=== PATIENT | male | born 1945 | race Caucasian/White ===

== ENCOUNTER 2017-11-14 13:15 | Inpatient (IN) | payer OTHER ==
[~2017-11-14] VITALS: Ht 172.7 cm; Wt 74.8 kg
--- NOTE | 2017-11-14 13:28 | ED DYSPNEA/ASTHMA COMPLAINT ---
History of Present Illness General Chief Complaint: Dyspnea (COPD, CHF, Other) Stated Complaint: BIBA FOR SOB Source: patient, family Exam Limitations: no limitations Vital Signs & Intake/Output Vital Signs & Intake/Output Vital Signs Date Time Temp Pulse Resp B/P B/P Pulse O2 O2 Flow FiO2 Mean Ox Delivery Rate 11/14 1916 98.4 89 22 118/70 94 Nasal 3.0L Cannula 11/14 1659 97.7 80 22 107/67 92 Nasal 2.0L Cannula 11/14 1519 83 24 88/52 92 Nasal 2.0L Cannula 11/14 1421 95 Nasal 2.0L Cannula 11/14 1417 92 Nasal 2.0L Cannula 11/14 1342 94 Nasal 2.0L Cannula 11/14 1318 97.5 87 26 93/62 87 Room Air Allergies Coded Allergies: NO KNOWN ALLERGIES (11/14/17) Reconcile Medications Albuterol Sulfate (Proair Hfa) 90 MCG HFA.AER.AD 1 PUF INH Q4 PRN SHORTNESS OF BREATH (Reported) Amlodipine Besylate (Norvasc) 5 MG TABLET 1 TAB PO DAILY HEART (Reported) Aspirin (Aspirin*) 81 MG TAB.CHEW 1 TAB PO DAILY HEART HEALTH (Reported) Atorvastatin Calcium (Lipitor) 80 MG TABLET 1 TAB PO DAILY CHOLESTEROL ( Reported) Azithromycin (Zithromax) 250 MG TABLET 1 TAB PO DAILY ANTIBIOTIC, INFECTION ( Reported) Ipratropium/Albuterol Sulfate (Iprat-Albut 0.5-3(2.5) MG/3 Ml) 0.5 MG-3 MG (2.5 MG BASE)/3 ML AMPUL.NEB 1 VIAL PO 4 TIMES/DAY BREATHING PROBLEMS (Reported) Losartan Potassium 100 MG TABLET 1 TAB PO DAILY HEART (Reported) Metoprolol Tartrate (Lopressor) 50 MG TABLET 1 TAB PO DAILY HEART (Reported) Prasugrel HCl (Effient) 10 MG TABLET 1 TAB PO DAILY BLOOD THINNER (Reported) Sitagliptin Phos/Metformin HCl (Janumet 50-1,000 MG Tablet) 50 MG-1,000 MG TABLET 1 TAB PO DAILY DIABETES (Reported) Triage Note: BIBA FROM DR BELLO OFFICE, WITH C/O LOW O2 SATS AT DRS OFFICE OR 88% ON ROOM AIR, GIVEN DUONEB AT DR BELLO OFFICE. Triage Nurses Notes Reviewed? yes HPI: 72 yo M PMH HTN, HLD, CAD/LA, CKD, COPD presenting with shortness of breath. Shortness of breath for the last 2-3 days, constant, progressive, worse with exertion, acute onset. Associated cough, diffuse weakness, fatigue, patient having difficulty ambulating at home. Denies associated fevers, chills, chest pain, palpitations, abdominal Sx, LE swelling or bernal. Patients finally convinced him to be evaluated by his PMD Dr. Bello this morning, was found to be hypoxic and "didn't look well", sent to ED. (Ata Miguel MD) Past History Travel History Traveled to [place] past 21 day No Medical History Any Pertinent Medical History? see below for history Neurological: NONE EENT: NONE Cardiovascular: CAD, hypertension, hyperlipidemia Respiratory: bronchitis Gastrointestinal: NONE Hepatic: NONE Renal: chronic kidney disease, STAGE II Musculoskeletal: NONE Psychiatric: NONE Endocrine: diabetes Surgical History Surgical History: none Psychosocial History What is your primary language Belgian Tobacco Use: Quit >30 days ago ETOH Use: denies use Illicit Drug Use: denies illicit drug use Family History Hx Contributory? Yes (Ata Miguel MD) Review of Systems Review of Systems Constitutional: Reports: see HPI. EENTM: Reports: no symptoms. Respiratory: Reports: see HPI. Cardiovascular: Reports: see HPI. GI: Reports: no symptoms. Genitourinary: Reports: no symptoms. Musculoskeletal: Reports: no symptoms. Skin: Reports: no symptoms. Neurological/Psychological: Reports: no symptoms. Hematologic/Endocrine: Reports: no symptoms. Immunologic/Allergic: Reports: no symptoms. All Other Systems: Reviewed and Negative (Ata Miguel MD) Physical Exam Physical Exam General Appearance: well developed/nourished, no apparent distress, Appears Fatigued Head: atraumatic Eyes: Bilateral: PERRL, EOMI. Ears, Nose, Throat: moist mucus membranes Neck: normal inspection, full range of motion, no midline tenderness Respiratory: no respiratory distress, rhonchi, Diffuse bilateral rhonchi with normal work of breathing Cardiovascular: regular rate/rhythm, normal peripheral pulses Gastrointestinal: soft, non-tender Extremities: no edema Core Measures ACS in differential dx? No CVA/TIA Diagnosis No Sepsis Present: No Sepsis Focused Exam Completed? No (Ata Miguel MD) Progress Differential Diagnosis: asthma, AMI, altitude sickness, bronchitis, costochondritis, CHF, COPD, musculoskeletal pain, pericarditis, pulmonary embolism, pneumonia, pneumothorax, rib fracture, unstable angina Plan of Care: Orders Procedure Date/time Status Misc Message 11/14 1929 Active ED Holding Orders 11/14 1929 Active Patient Data 11/14 1752 Active BLOOD CULTURE 11/14 1636 Active Admit to inpatient 11/14 1629 Active BLOOD CULTURE 11/14 1540 Active Intake & Output 11/14 1431 Active TROPONIN LEVEL 11/14 1345 Complete D-DIMER 11/14 1345 Complete CBC WITHOUT DIFFERENTIAL 11/14 134 Complete B-TYPE NATRIURETIC PEP (BNP) 11/14 1345 Complete BASIC METABOLIC PANEL 11/14 1345 Complete EKG 11/14 1316 Active Laboratory Tests 11/14/17 1418: Anion Gap 14, Estimated GFR 27 L, BUN/Creatinine Ratio 19.2, Glucose 153 H, Calcium 8.4, Troponin I 0.07, Utl-A-Xfajcxghhqc Pept 8210 H, D-Dimer High Sensitivty 700 H, CBC w Diff MAN DIFF ORDERED, RBC 4.74, MCV 85.3, MCH 28.6, MCHC 33.5, RDW 14.0, MPV 10.0, Gran % 92.8 H, Lymphocytes % 4.6 L, Monocytes % 2.5, Eosinophils % 0.1, Basophils % 0, Absolute Granulocytes 15.6 H, Segmented Neutrophils 69, Band Neutrophils 18 H, Absolute Lymphocytes 0.8 L, Lymphocytes 10 L, Monocytes 3, Absolute Monocytes 0.4, Absolute Eosinophils 0, Absolute Basophils 0, Platelet Estimate ADEQUATE, Poikilocytosis 1+, Anisocytosis 1+, [place] Cells Microbiology 11/14 1649 BLOOD: Blood Culture - RECD 11/14 1640 BLOOD: Blood Culture - RECD 11/14 1540 BLOOD: Blood Culture - CAN Cancelled: QNS Physician MDM: 72 yo M PMH HTN, HLD, CAD/LA, CKD, COPD presenting with shortness of breath. SBP 80s, hypoxic to 87% on RA, HR stable, well appearing and mentating well, pulmonary exam with diffuse bilateral rhonchi. DDx: Viral URI, Bronchitis, PNA, COPD exacerbation. Given 2L NS, duonebs x 2, prednisone, O2 NC with improvement in O2 Sat and BP. Labs remarkable for leukocytosis with bandemia, EVELYN (Cr 1.0 >> 2.4), elevated BNP and D-dimer. CXR with RML PNA, vancomycin and ceftaz given. Unable to obtaine CTA 2/2 EVELYN, V/Q scan obtained, low probablity for PE, will not anticoagulate. Admit for EVELYN and PNA with hypoxia on room air. Initial ED EKG: normal axis (Ata Miguel MD) Departure Departure Disposition: STILL A PATIENT Condition: Stable Clinical Impression Primary Impression: EVELYN (acute kidney injury) Secondary Impressions: PNA (pneumonia) Referrals: Abilio Bello MD (PCP/Family) Departure Forms: Customer Survey General Discharge Information Admission Note Spoke With: Teodora Luo MD Documentation of Exam: Documentation of any treatments & extenuating circumstances including Concerns Regarding Discharge (functional status, medication knowledge or non-compliance, living conditions, etc.) that warrant an admission rather than observation: [ Patient presents with hypoxia and hypotension, found to have right middle lobe pneumonia, patient requires admission for oxygen, monitoring, ongoing IV fluids, ongoing IV antibiotics, further evaluation, if the patient was discharged has a high likelihood of progressive hypoxia and progressive pulmonary infection leading to respiratory collapse and ] (Ata Miguel MD) Departure Comments I agree with the physician's documentation above. (Efrain LAYTON,Dudley Cartagena) Critical Care Note Critical Care Note Critical Care Time: non-applicable (Ata Miguel MD)
[2017-11-14] MEDS ORDERED: PROAIR HFA8.5 GM INH (14:16)
[2017-11-14] MEDS ORDERED: IPRAT-ALBUT 0.5-3 ML PO (14:16)
[2017-11-14] MEDS ORDERED: ZITHROMAX250 M2 PO (14:17)
[2017-11-14] MEDS ORDERED: LOSARTAN POTAS100 M1 PO (14:17)
[2017-11-14] MEDS ORDERED: JANUMET 50-1,01 EACH PO (14:18)
[2017-11-14] MEDS ORDERED: LIPITOR80 M1 PO (14:18)
[2017-11-14] MEDS ORDERED: NORVASC5 M1 PO (14:19)
[2017-11-14] MEDS ORDERED: ASPIRIN81 M4 PO (14:19)
[2017-11-14] MEDS ORDERED: LOPRESSOR50 M1 PO (14:19)
[2017-11-14] MEDS ORDERED: EFFIENT10 M1 PO (14:20)
[2017-11-14 14:27] LABS: ABSOLUTE BASOPHIL COUNT 0 /CUMM (0.0-0.2); ABSOLUTE EOSINOPHIL COUNT 0 /CUMM (0.0-0.7); ABSOLUTE GRANULOCYTE CT 15.6 /CUMM (1.4-6.5); ABSOLUTE LYMPH COUNT 0.8 /CUMM (1.2-3.4); ABSOLUTE MONOCYTE COUNT 0.4 /CUMM (0.10-0.60); BASOPHIL % 0 % (0.0-2.0); EOSINOPHIL % 0.1 % (0-5); HEMATOCRIT 40.4 % (42-52); MEAN CORPUSCULAR HGB 28.6 PG (27.0-31.0); MEAN CORPUSCULAR HGB CONC 33.5 G/DL (33.0-37.0); MEAN CORPUSCULAR VOLUME 85.3 FL (80.0-94.0); PLATELET COUNT 159 /CUMM (130-400); RED BLOOD CELL CT 4.74 /CUMM (4.70-6.10); WHITE BLOOD CELL COUNT 16.8 /CUMM (4.8-10.8)
[2017-11-14 14:30] LABS: GRANULOCYTE % 92.8 % (42.2-75.2)
--- NOTE | 2017-11-14 14:54 | RADIOLOGY REPORT ---
EXAMINATION: XR CHEST CLINICAL INFORMATION: Hypoxia and cough. COMPARISON: None TECHNIQUE: Frontal and lateral views of the chest were obtained. FINDINGS: The heart, great vessels, pulmonary vasculature and mediastinum are normal. There is a patchy infiltrate within the right middle lobe. The left lung field appears clear. There is no pleural effusion or pneumothorax. No acute osseous abnormality is seen. IMPRESSION: A patchy infiltrate is seen in the right middle lobe, consistent with acute pneumonia. Recommend radiographic follow-up to clearance.
--- NOTE | 2017-11-14 17:33 | NUCLEAR MEDICINE REPORT ---
EXAMINATION: PULMONARY VENTILATION PERFUSION STUDY CLINICAL INFORMATION: Shortness of breath, hypoxia. COMPARISON: No previous lung scan is available for comparison. Radiographs of the chest dated 11/14/2017, the same date as this lung scan, are available for comparison. TECHNIQUE: Serial gamma scintillation camera images were obtained over the posterior chest during the single breath, equilibrium rebreathing and washout of 9.3 mCi Xe 133 gas. The patient then received 3.4 mCi Tc-99m MAA intravenously and a 6-view perfusion study was performed. FINDINGS: Ventilation images: On the single breath image there is moderately decreased activity in the right lower lobe and minimally decreased activity in the right upper lobe. Initial images become much more homogeneous during the equilibrium phase. During the washout phase there is moderate retention in the lower lobes bilaterally. Perfusion images: No segmental perfusion defects are present. There is moderate heterogeneity in the lungs with a moderate diffuse decrease in activity in the right lower lobe in a pattern that is well matched to the region of gas trapping noted on the washout phase of the ventilation images. This is also well matched to the decreased activity present on the initial breath image of the ventilation study. The contemporaneous chest radiographs show a patchy right lower lung infiltrate. IMPRESSION: Low probability of pulmonary embolism. Matched moderately severe nonsegmental ventilation and perfusion abnormalities are likely due to obstructive airway disease or a pneumonitis.
--- NOTE | 2017-11-14 18:48 | History & Physical ---
Aaliyah GARDINER,[facility] 11/14/17 1848: General Information and HPI MD Statement: I have seen and personally examined RUDDY GUERRA and documented this H&P. The patient is a 72 year old M who presented with a patient stated chief complaint of [shortness of breath]. Source of Information: patient, family, old records Exam Limitations: no limitations History of Present Illness: Patient is 72-year-old male with past medical history significant for hypertension, hyperlipidemia, diabetes mellitus, coronary artery disease status post stent placement 2 5 years ago on dual antiplatelet therapy, asthma, chronic kidney disease stage II, diffuse osteoarthritis who presented to ED with chief complaint of shortness of breath and progressive weakness over the last 2 day. History was obtained from the patient and his were reported history of shortness of breath over the last 2 days associated with progressive weakness , wheeze, chills, productive cough of white sputum and paroxysmal nocturnal dyspnea. Patient denied fever, chest pain, palpitation, nasal congestion, ear pain, headache, dizziness, orthopnea, leg swelling. No history of sick contact. Patient has been using inhalers more frequent recently, had to visit to [facility] ED over the last couple of month however no admissions. Patient tried Mucinex that helped his cough. Allergies/Medications Allergies: Coded Allergies: NO KNOWN ALLERGIES (11/14/17) Past History Travel History Traveled to [place] past 21 day No Medical History Neurological: NONE EENT: NONE Cardiovascular: CAD, hypertension, hyperlipidemia Respiratory: bronchitis Gastrointestinal: NONE Hepatic: NONE Renal: chronic kidney disease, STAGE II Musculoskeletal: NONE Psychiatric: NONE Endocrine: diabetes Surgical History Surgical History: non-contributory Past Family/Social History Psychosocial History ETOH Use: denies use Illicit Drug Use: denies illicit drug use Review of Systems Review of Systems Constitutional: Reports: see HPI, chills. Denies: fever. EENTM: Denies: blurred vision, visual changes. Cardiovascular: Denies: chest pain, orthopena, palpitations. Respiratory: Reports: cough, short of breath, wheezing. Denies: hemoptysis, orthopnea. GI: Reports: bloating. Denies: abdominal pain. Genitourinary: Denies: dysuria, frequency, hematuria. Skin: Denies: moles, rash. Neurological/Psychological: Denies: anxiety, confusion. Exam & Diagnostic Data Last 24 Hrs of Vital Signs/I&O Vital Signs Date Time Temp Pulse Resp B/P B/P Pulse O2 O2 Flow FiO2 Mean Ox Delivery Rate 11/148 97.6 86 20 136/70 95 Nasal 3.0L Cannula 11/14 2100 Nasal 2.0L Cannula 11/14 1916 98.4 89 22 118/70 94 Nasal 3.0L Cannula 11/14 1659 97.7 80 22 107/67 92 Nasal 2.0L Cannula 11/14 1519 83 24 88/52 92 Nasal 2.0L Cannula 11/14 1421 95 Nasal 2.0L Cannula 11/14 1417 92 Nasal 2.0L Cannula 11/14 1342 94 Nasal 2.0L Cannula 11/14 1318 97.5 87 26 93/62 87 Room Air Intake & Output 11/14 1600 11/14 0800 11/14 0000 Intake Total 100 Output Total Balance 100 Intake, Oral 100 Patient 74.843 kg Weight Weight Reported by Patient Measurement Method Physical Exam General Appearance Alert, Oriented X3, Cooperative, No Acute Distress Skin No Rashes, No Breakdown, No Significant Lesion Skin Temp/Moisture Exam: Warm/Dry HEENT Atraumatic, PERRLA, EOMI, Mucous Membr. moist/pink Neck Supple Cardiovascular Regular Rate, Normal S1, Normal S2, No Murmurs Lungs diffuse bilateral wheeze Decrease at entry bilateral Abdomen Normal Bowel Sounds, Soft, No Tenderness Neurological Normal Gait, Normal Speech, Strength at 5/5 X4 Ext, Normal Tone, Sensation Intact, Cranial Nerves 3-12 NL, Reflexes 2+ Extremities No Clubbing, No Cyanosis, No Edema, Normal Pulses Last 24 Hrs of Labs/Herrera: Laboratory Tests 11/14/17 1418: Anion Gap 14, Estimated GFR 27 L, BUN/Creatinine Ratio 19.2, Glucose 153 H, Calcium 8.4, Troponin I 0.07, Uid-R-Rrynsthfprx Pept 8210 H, D-Dimer High Sensitivty 700 H, CBC w Diff MAN DIFF ORDERED, RBC 4.74, MCV 85.3, MCH 28.6, MCHC 33.5, RDW 14.0, MPV 10.0, Gran % 92.8 H, Lymphocytes % 4.6 L, Monocytes % 2.5, Eosinophils % 0.1, Basophils % 0, Absolute Granulocytes 15.6 H, Segmented Neutrophils 69, Band Neutrophils 18 H, Absolute Lymphocytes 0.8 L, Lymphocytes 10 L, Monocytes 3, Absolute Monocytes 0.4, Absolute Eosinophils 0, Absolute Basophils 0, Platelet Estimate ADEQUATE, Poikilocytosis 1+, Anisocytosis 1+, [place] Cells Microbiology 11/14 2222 URINE ROUT: Legionella Antigen - ORD 11/14 2222 URINE ROUT: Streptococcus pneumoniae Antigen (M - ORD 11/14 2221 LOWER RESP: Respiratory Culture - ORD 11/14 2221 LOWER RESP: Gram Stain - ORD 11/14 1649 BLOOD: Blood Culture - RECD 11/14 1640 BLOOD: Blood Culture - RECD 11/14 1540 BLOOD: Blood Culture - CAN Cancelled: QNS Assessment/Plan Assessment: Patient is 72-year-old male with past medical history significant for hypertension, hyperlipidemia, diabetes mellitus, coronary artery disease status post stent placement 2 5 years ago on dual antiplatelet therapy, asthma, chronic kidney disease stage II, diffuse osteoarthritis who presented to ED with chief complaint of shortness of breath and progressive weakness over the last 2 day. Problem list Acute hypoxic respiratory failure due to Community-acquired pneumonia Asthma Hypertension and hyperlipidemia Coronary artery disease status post stent placement Diabetes mellitus Chronic kidney disease Osteoarthritis Plan Admit to general medical floor Vitals every shift Repeat troponin and EKG Ceftriaxone and azithromycin Solu-Medrol 40 twice a day TRC and nebs Continue home medication Accu check and NovoLog sliding scale Diabetic diet with sodium restriction Please obtain records from PCP for baseline kidney function DVT prophylaxis Alps and heparin subcutaneous Code full As Ranked By This Provider Problem List: 1. PNA (pneumonia) 2. Acute respiratory failure with hypoxia Core Measures/Misc (03/26) Acute Coronary Syndrome ACS Diagnosis: No Congestive Heart Failure Congestive Heart Failure Diagnosis No Cerebrovascular Accident CVA/TIA Diagnosis: No VTE (View Protocol) VTE Risk Factors Age>40 No Mechanical VTE Prophylaxis d/t N/A MechProphylax Ordered No VTE Pharm Prophylaxis d/t NA PharmProphylax ordered Sepsis (View protocol) Sepsis Present: No Teodora Luo MD 11/14/172140: General Information and HPI Allergies/Medications Home Med list Albuterol Sulfate (Proair Hfa) 90 MCG HFA.AER.AD 1 PUF INH Q4 PRN SHORTNESS OF BREATH (Reported) Aspirin (Aspirin*) 81 MG TAB.CHEW 1 TAB PO DAILY HEART HEALTH (Reported) Atorvastatin Calcium (Lipitor) 80 MG TABLET 1 TAB PO DAILY CHOLESTEROL ( Reported) Azithromycin (Zithromax) 250 MG TABLET 1 TAB PO DAILY ANTIBIOTIC, INFECTION ( Reported) Ipratropium/Albuterol Sulfate (Iprat-Albut 0.5-3(2.5) MG/3 Ml) 0.5 MG-3 MG (2.5 MG BASE)/3 ML AMPUL.NEB 1 VIAL PO 4 TIMES/DAY BREATHING PROBLEMS (Reported) Losartan Potassium 100 MG TABLET 1 TAB PO DAILY HEART (Reported) Metoprolol Tartrate (Lopressor) 50 MG TABLET 1 TAB PO DAILY HEART (Reported) Prasugrel HCl (Effient) 10 MG TABLET 1 TAB PO DAILY BLOOD THINNER (Reported) Sitagliptin Phos/Metformin HCl (Janumet 50-1,000 MG Tablet) 50 MG-1,000 MG TABLET 1 TAB PO DAILY DIABETES (Reported) Attending MD Review Statement Attending Statement Attending MD Statement: examined this patient, discuss w/resident/PA/HOUSEKEEPING ASSISTANT, agreed w/resident/PA/HOUSEKEEPING ASSISTANT, reviewed EMR data (avail) Attending Assessment/Plan: 72M PMH COPD, T2DM, CAD with 3 days of fever, productive cough, malaise found to have RML pneumonia on CXR, desaturated in Dr. Gaviria office and placed on 2L NC (not on oxygen at home), borderline hypotensive, afebrile. Given Vancomycin and Ceftazidime in ER, will continue with Ceftriaxone and Azithro, Solumedrol, cultures, nebulizer treatment.
[2017-11-14 22:28] VITALS: BP 136/70
--- NOTE | 2017-11-15 05:00 | PN- Housestaff ---
Subjective Follow-up For: Community-acquired pneumonia Complaints: no complaints Subjective: Patient seen and examined at bedside no overnight events. No complaints. Denies shortness of breath, nausea, vomiting, abdominal pain. Review of Systems Constitutional: Reports: no symptoms, see HPI. Objective Last 24 Hrs of Vital Signs/I&O Vital Signs Date Time Temp Pulse Resp B/P B/P Pulse O2 O2 Flow FiO2 Mean Ox Delivery Rate 11/15 1150 101 118/64 11/15 0856 91 100/58 11/15 0955 91 100/58 11/15 0800 93 Nasal 3.0L Cannula 11/15 0556 98.0 91 20 100/58 93 Room Air 11/15 0000 Nasal 3.0L Cannula 11/14 2228 97.6 86 20 136/70 95 Nasal 3.0L Cannula 11/14 2100 Nasal 2.0L Cannula 11/14 1916 98.4 89 22 118/70 94 Nasal 3.0L Cannula 11/14 1659 97.7 80 22 107/67 92 Nasal 2.0L Cannula 11/14 1519 83 24 88/52 92 Nasal 2.0L Cannula 11/14 1421 95 Nasal 2.0L Cannula 11/14 1417 92 Nasal 2.0L Cannula Intake & Output 11/15 1600 11/15 0800 11/15 0000 Intake Total 200 400 Output Total Balance 200 400 Intake, Oral 200 400 Patient 165 lb Weight Weight Reported by Patient Measurement Method Physical Exam General Appearance: Alert, Oriented X3, Cooperative, No Acute Distress Cardiovascular: Regular Rate, Normal S1, Normal S2, No Murmurs Lungs: whezzing all lung feilds Abdomen: Normal Bowel Sounds, Soft, No Tenderness, No Hepatospenomegaly Neurological: Normal Speech, Strength at 5/5 X4 Ext, Normal Tone, Sensation Intact, Cranial Nerves 3-12 NL Extremities: No Cyanosis, No Edema, Normal Pulses Current Medications: Current Medications Sig/Evaristo Start time Last Medication Dose Route Stop Time Status Admin Albuterol Sulfate 3 ML EVERY 4 HRS/AWAKE 11/15 1600 UNVr INH Albuterol Sulfate 1 PUF Q4 PRN 11/14 2230 AC 11/15 INH 0617 Albuterol Sulfate 3 ML ONCE ONE 11/14 1345 DC 11/14 INH 11/14 1346 1417 Albuterol Sulfate 3 ML ONCE ONE 11/14 1345 DC 11/14 INH 11/14 1346 1421 Aspirin 81 MG DAILY 11/15 899 AC 11/15 PO 0842 Atorvastatin Calcium 80 MG DAILY 11/15 899 AC 11/15 PO 0843 Azithromycin 500 MG DAILY 11/15 899 AC 11/15 Sodium Chloride 250 ML IV 0843 Ceftazidime 0 .STK-MED ONE 11/14 1532 DC .ROUTE Ceftazidime 1,000 MG ONCE ONE 11/14 1515 DC 11/14 IV 11/14 1516 1653 Ceftriaxone Sodium 1,000 MG DAILY 11/15 899 AC 11/15 IV 1118 Dextrose/Sodium 1,000 ML Q10H 11/15 1115 AC 11/15 Chloride IV 1203 Guaifenesin 600 MG Q12 11/14 2222 AC 11/15 PO 0842 Heparin Sodium 5,000 UNIT Q8 11/15 599 AC 11/15 (Porcine) SC 0516 Insulin Aspart 0 TIDAC 11/16 799 AC 11/15 SC 1214 Ipratropium Protection 2.5 ML EVERY 4 HRS/AWAKE 11/15 1600 UNVr INH Ipratropium Protection 2.5 ML ONCE ONE 11/14 2230 DC INH 11/14 2231 Ipratropium Protection 2.5 ML ONCE ONE 11/14 1345 DC 11/14 INH 11/14 1346 1417 Ipratropium Protection 2.5 ML ONCE ONE 11/14 1345 DC 11/14 INH 11/14 1346 1421 Losartan Potassium 100 MG DAILY 11/15 899 DC PO Methylprednisolone 40 MG Q8 11/15 1400 AC IV Methylprednisolone 40 MG Q12 11/15 899 DC 11/15 IV 0842 Methylprednisolone 40 MG Q12 11/14 2222 DC IV Metoprolol Tartrate 50 MG DAILY 11/15 899 AC 11/15 PO 1344 Patient Medication 1 ED ONE ONE 11/15 1215 DC Teaching ED 11/15 1216 Prasugrel 10 MG DAILY 11/15 899 AC 11/15 PO 0842 Prednisone 0 .STK-MED ONE 11/14 1434 DC PO Prednisone 60 MG ONCE ONE 11/14 1345 DC 11/14 PO 11/14 1346 1430 Sodium Chloride 1,000 ML BOLUS ONE 11/14 1545 DC IV 11/14 1744 Sodium Chloride 1,000 ML BOLUS ONE 11/14 1515 DC 08 IV 11/14 1714 1500 Vancomycin HCl 0 .STK-MED ONE 11/14 1532 DC .ROUTE Vancomycin HCl 1,000 MG ONCE ONE 11/14 1515 DC 11/14 Sodium Chloride 250 ML IV 11/14 1614 1701 Last 24 Hrs of Lab/Herrera Results Last 24 Hrs of Labs/Mics: Laboratory Tests 11/15/17 0710: Anion Gap 15, Estimated GFR 23 L, BUN/Creatinine Ratio 24.8 11/15/17 0645: CBC w Diff MAN DIFF ORDERED, RBC 4.53 L, MCV 84.9, MCH 27.9, MCHC 32.8 L, RDW 15.1 H, MPV 10.9 H, Gran % 95.5 H, Lymphocytes % 2.7 L, Monocytes % 1.8, Eosinophils % 0, Basophils % 0, Absolute Granulocytes 19.2 H, Segmented Neutrophils 63, Band Neutrophils 29 H, Absolute Lymphocytes 0.6 L, Lymphocytes 5 L, Monocytes 1 L, Absolute Monocytes 0.4, Absolute Eosinophils 0, Absolute Basophils 0, Metamyelocytes 2 H, Platelet Estimate VERIFIED BY SMEAR, Normocytic RBCs VERIFIED, Normochromic RBCs VERIFIED 11/14/17 2255: Troponin I 0.08 11/14/17 1418: Anion Gap 14, Estimated GFR 27 L, BUN/Creatinine Ratio 19.2, Glucose 153 H, Calcium 8.4, Troponin I 0.07, Lqx-[id number]-Urcxxgrtfja Pept 8210 H, D-Dimer High Sensitivty 700 H, CBC w Diff MAN DIFF ORDERED, RBC 4.74, MCV 85.3, MCH 28.6, MCHC 33.5, RDW 14.0, MPV 10.0, Gran % 92.8 H, Lymphocytes % 4.6 L, Monocytes % 2.5, Eosinophils % 0.1, Basophils % 0, Absolute Granulocytes 15.6 H, Segmented Neutrophils 69, Band Neutrophils 18 H, Absolute Lymphocytes 0.8 L, Lymphocytes 10 L, Monocytes 3, Absolute Monocytes 0.4, Absolute Eosinophils 0, Absolute Basophils 0, Platelet Estimate ADEQUATE, Poikilocytosis 1+, Anisocytosis 1+, [place] Cells Microbiology 11/14 2222 URINE ROUT: Legionella Antigen - CAN Cancelled: SPECIMEN NOT RECEIVED IN LABORATORY 11/14 2222 URINE ROUT: Streptococcus pneumoniae Antigen (M - CAN Cancelled: SPECIMEN NOT RECEIVED IN LABORATORY 11/14 2221 LOWER RESP: Respiratory Culture - CAN Cancelled: SPECIMEN NOT RECEIVED IN LABORATORY 11/14 2222 LOWER RESP: Gram Stain - CAN Cancelled: SPECIMEN NOT RECEIVED IN LABORATORY 11/14 1649 BLOOD: Blood Culture - RES GRAM POSITIVE COCCI 11/14 1640 BLOOD: Blood Culture - RES GRAM POSITIVE COCCI 11/14 1540 BLOOD: Blood Culture - CAN Cancelled: QNS Assessment/Plan Assessment: Patient is 72-year-old male with past medical history significant for hypertension, hyperlipidemia, diabetes mellitus, coronary artery disease status post stent placement 2 - 5 years ago on dual antiplatelet therapy, asthma, chronic kidney disease stage II, diffuse osteoarthritis who presented to ED with chief complaint of shortness of breath and progressive weakness over the last 2 day. Problem list Acute hypoxic respiratory failure due to Community-acquired pneumonia Asthma Hypertension and hyperlipidemia Coronary artery disease status post stent placement Diabetes mellitus Chronic kidney disease-stage I Osteoarthritis Plan * Continue ceftriaxone and azithromycin-patient being treated for community- acquired pneumonia. TRC nebulization. Continue albuterol, Mucinex and IV methylprednisone every 8. Patient is growing gram-positive cocci in chains. We will follow up with final cultures. * Ggxahayo-Ztjm-Qrhp and NovoLog sliding scale insulin. * Coronary artery disease-continue effient, aspirin, metoprolol 50. We will discontinue losartan in view of acute kidney injury. His baseline creatinine is 1.1 [spoke to Dr. Rivera's over the phone] his creatinine yesterday was 2.4 and today is 2.7. This looks most likely dehydration we'll give him IV fluids. We will also check renal ultrasound, see note, urine osmolality, urine sodium, urine creatinine. We will involve cardiology on board and order echocardiogram. * Continue rest of his medications. * Code-full code * Diet-diabetic diet Problem List: 1. Acute respiratory failure with hypoxia 2. PNA (pneumonia) 3. EVELYN (acute kidney injury) Pain Ratin Pain Location: none Pain Goal: Remain pain free Pain Plan: tylenol Tomorrow's Labs & Rationales: bep
--- NOTE | 2017-11-15 05:20 | Event Note ---
Event Note Event Note: Situation Nursing called that b/c is growing GPC X2 Background 72 Y M past medical history significant for hypertension, hyperlipidemia, diabetes mellitus, coronary artery disease status post stent placement 2 5 years ago on dual antiplatelet therapy, asthma, chronic kidney disease stage II, diffuse osteoarthritis who presented to ED with chief complaint of shortness of breath and progressive weakness over the last 2 day. A and P Patient received 1 dose of Ceftaz and vancomycin at 3:30 PM yesterday. Cr was 2.4, pharmacy was contacted, considering the last dose of vancomycin was less than 24 hours, we will hold to administer extra dose at this time. If indicated vanc level needs to be checked to guid treatment. Morning team will be informed.
[2017-11-15 05:56] VITALS: BP 100/58
[2017-11-15 08:48] LABS: ABSOLUTE BASOPHIL COUNT 0 /CUMM (0.0-0.2); ABSOLUTE EOSINOPHIL COUNT 0 /CUMM (0.0-0.7); ABSOLUTE GRANULOCYTE CT 19.2 /CUMM (1.4-6.5); ABSOLUTE LYMPH COUNT 0.6 /CUMM (1.2-3.4); ABSOLUTE MONOCYTE COUNT 0.4 /CUMM (0.10-0.60); BASOPHIL % 0 % (0.0-2.0); EOSINOPHIL % 0 % (0-5); GRANULOCYTE % 95.5 % (42.2-75.2); HEMATOCRIT 38.4 % (42-52); MEAN CORPUSCULAR HGB 27.9 PG (27.0-31.0); MEAN CORPUSCULAR HGB CONC 32.8 G/DL (33.0-37.0); MEAN CORPUSCULAR VOLUME 84.9 FL (80.0-94.0); MEAN PLATELET VOLUME 10.9 FL (7.4-10.4); PLATELET COUNT 156 /CUMM (130-400); RBC DISTRIBUTION WIDTH 15.1 % (11.5-14.5); RED BLOOD CELL CT 4.53 /CUMM (4.70-6.10); WHITE BLOOD CELL COUNT 20.1 /CUMM (4.8-10.8)
[2017-11-15 11:50] VITALS: BP 118/64
--- NOTE | 2017-11-15 12:14 | PN- Att Addend ---
Attending Addendum Attending Brief Note Patient seen and examined, not feeling much better. Still pretty short of breath. Requiring significant amount of oxygen. Blood cultures growing gram- positive cocci in chains. Vital Signs Date Time Temp Pulse Resp B/P B/P Pulse O2 O2 Flow FiO2 Mean Ox Delivery Rate 11/15 1150 101 118/64 11/15 0956 91 100/58 11/15 0955 91 100/58 11/15 0800 93 Nasal 3.0L Cannula 11/15 0556 98.0 91 20 100/58 93 Room Air 11/15 0000 Nasal 3.0L Cannula 11/14 2228 97.6 86 20 136/70 95 Nasal 3.0L Cannula 11/14 2100 Nasal 2.0L Cannula 11/14 1916 98.4 89 22 118/70 94 Nasal 3.0L Cannula 11/14 1659 97.7 80 22 107/67 92 Nasal 2.0L Cannula 11/14 1519 83 24 88/52 92 Nasal 2.0L Cannula 11/14 1421 95 Nasal 2.0L Cannula 11/14 1417 92 Nasal 2.0L Cannula 11/14 1342 94 Nasal 2.0L Cannula 11/14 1318 97.5 87 26 93/62 87 Room Air on exam; aox3, nad. cv; s1,s2, rrr resp; + junky bs and exp wheeze. abd; soft, nt, bs+ ext; no edema Laboratory Tests 11/15 11/15 11/14 0710 0645 2255 Chemistry Sodium (137 - 145 mmol/L) 140 Potassium (3.5 - 5.1 mmol/L) 3.6 Chloride (98 - 107 mmol/L) 105 Carbon Dioxide (22 - 30 mmol/L) 20 L Anion Gap (5 - 16) 15 BUN (9 - 20 mg/dL) 67 H Creatinine (0.7 - 1.2 mg/dL) 2.7 H Estimated GFR (>60 ml/min) 23 L BUN/Creatinine Ratio (7 - 25 %) 24.8 Troponin I (<0.11 ng/ml) 0.08 Hematology CBC w Diff MAN DIFF ORDERED WBC (4.8 - 10.8 /CUMM) 20.1 H RBC (4.70 - 6.10 /CUMM) 4.53 L Hgb (14.0 - 18.0 G/DL) 12.6 L Hct (42 - 52 %) 38.4 L MCV (80.0 - 94.0 FL) 84.9 MCH (27.0 - 31.0 PG) 27.9 MCHC (33.0 - 37.0 G/DL) 32.8 L RDW (11.5 - 14.5 %) 15.1 H Plt Count (130 - 400 /CUMM) 156 MPV (7.4 - 10.4 FL) 10.9 H Gran % (42.2 - 75.2 %) 95.5 H Lymphocytes % (20.5 - 51.1 %) 2.7 L Monocytes % (1.7 - 9.3 %) 1.8 Eosinophils % (0 - 5 %) 0 Basophils % (0.0 - 2.0 %) 0 Absolute Granulocytes (1.4 - 6.5 /CUMM) 19.2 H Segmented Neutrophils (42.2 - 75.2 %) 63 Band Neutrophils (0.0 - 5.0 %) 29 H Absolute Lymphocytes (1.2 - 3.4 /CUMM) 0.6 L Lymphocytes (20.5 - 51.1 %) 5 L Monocytes (1.7 - 9.3 %) 1 L Absolute Monocytes (0.10 - 0.60 /CUMM) 0.4 Absolute Eosinophils (0.0 - 0.7 /CUMM) 0 Absolute Basophils (0.0 - 0.2 /CUMM) 0 Metamyelocytes (0.0 - 1.0 %) 2 H Platelet Estimate (ADEQUATE) VERIFIED BY SMEAR Normocytic RBCs VERIFIED Normochromic RBCs VERIFIED 11/14 1418 Chemistry Sodium (137 - 145 mmol/L) 140 Potassium (3.5 - 5.1 mmol/L) 4.2 Chloride (98 - 107 mmol/L) 104 Carbon Dioxide (22 - 30 mmol/L) 22 Anion Gap (5 - 16) 14 BUN (9 - 20 mg/dL) 46 H Creatinine (0.7 - 1.2 mg/dL) 2.4 H Estimated GFR (>60 ml/min) 27 L BUN/Creatinine Ratio (7 - 25 %) 19.2 Glucose (65 - 99 mg/dL) 153 H Calcium (8.4 - 10.2 mg/dL) 8.4 Troponin I (<0.11 ng/ml) 0.07 Vha-M-Ekwmlvkybnw Pept (<125 pg/mL) 8210 H Coagulation D-Dimer High Sensitivty (0 - 243 ng/ml) 700 H Hematology CBC w Diff MAN DIFF ORDERED WBC (4.8 - 10.8 /CUMM) 16.8 H RBC (4.70 - 6.10 /CUMM) 4.74 Hgb (14.0 - 18.0 G/DL) 13.5 L Hct (42 - 52 %) 40.4 L MCV (80.0 - 94.0 FL) 85.3 MCH (27.0 - 31.0 PG) 28.6 MCHC (33.0 - 37.0 G/DL) 33.5 RDW (11.5 - 14.5 %) 14.0 Plt Count (130 - 400 /CUMM) 159 MPV (7.4 - 10.4 FL) 10.0 Gran % (42.2 - 75.2 %) 92.8 H Lymphocytes % (20.5 - 51.1 %) 4.6 L Monocytes % (1.7 - 9.3 %) 2.5 Eosinophils % (0 - 5 %) 0.1 Basophils % (0.0 - 2.0 %) 0 Absolute Granulocytes (1.4 - 6.5 /CUMM) 15.6 H Segmented Neutrophils (42.2 - 75.2 %) 69 Band Neutrophils (0.0 - 5.0 %) 18 H Absolute Lymphocytes (1.2 - 3.4 /CUMM) 0.8 L Lymphocytes (20.5 - 51.1 %) 10 L Monocytes (1.7 - 9.3 %) 3 Absolute Monocytes (0.10 - 0.60 /CUMM) 0.4 Absolute Eosinophils (0.0 - 0.7 /CUMM) 0 Absolute Basophils (0.0 - 0.2 /CUMM) 0 Platelet Estimate (ADEQUATE) ADEQUATE Poikilocytosis 1+ Anisocytosis 1+ [place] Cells A/P; 72 y/o F with pmh sig for hypertension, hyperlipidemia, diabetes mellitus, coronary artery disease status post stent placement 2, 5 years ago on dual antiplatelet therapy, asthma, chronic kidney disease stage II, diffuse osteoarthritis, admitted with acute respiratory failure secondary to community- acquired pneumonia. Patient also bacteremic with gram-positive cocci in chains. Patient also has acute renal failure on chronic kidney disease. Patient currently on cefazolin azithromycin. We'll follow-up on the blood cultures and adjust in about 6 accordingly. Continue IV steroids. Continue TRC nebs. Patient also has acute renal failure. Was started gentle IV hydration. Please check renal ultrasound as well as bladder ultrasound. Please check urine studies and calculate FENA. We'll monitor creatinine and if no improvement then will consider nephrology consult. Patient also has high proBNP. We'll obtain cardiology consult and obtain an echocardiogram. Continue the rest of the medications. Avoid nephrotoxic's. Hold ARB. Patient on heparin subcutaneous for DVT prophylaxis.
--- NOTE | 2017-11-15 13:05 | ULTRASOUND REPORT ---
EXAMINATION: US RETROPERITONEAL COMPLETE (RENAL) CLINICAL INFORMATION: Increased creatinine level. COMPARISON: None TECHNIQUE: Real-time imaging of the kidneys and bladder. FINDINGS: RIGHT KIDNEY: 11.1 x 5.3 x 5.4 cm (SAG x AP x TRV). The kidney is normal in size, contour, and echogenicity. Renal cortical thickness is normal. No calculi or focal parenchymal lesions. No hydronephrosis. LEFT KIDNEY: 11.5 x 5.7 x 4.0 cm (SAG x AP x TRV). The kidney is normal in size, contour, and echogenicity. Renal cortical thickness is normal. At the interpolar aspect, a 4.9 x 4.0 x 5.6 on anechoic, exophytic cyst is seen. No calculi or focal parenchymal solid lesions. No hydronephrosis. BLADDER: Well-distended and normal. Bilateral ureteral jets are demonstrated. Prevoid bladder volume is 245 mL. IMPRESSION: A simple left renal cyst is incidentally noted. The examination is otherwise unremarkable.
[2017-11-15 13:58] VITALS: BP 120/80
[2017-11-15 22:10] VITALS: BP 138/70
[2017-11-16 06:39] VITALS: BP 136/72
[2017-11-16 07:48] LABS: ABSOLUTE BASOPHIL COUNT 0 /CUMM (0.0-0.2); ABSOLUTE EOSINOPHIL COUNT 0 /CUMM (0.0-0.7); ABSOLUTE GRANULOCYTE CT 18.5 /CUMM (1.4-6.5); ABSOLUTE LYMPH COUNT 0.5 /CUMM (1.2-3.4); ABSOLUTE MONOCYTE COUNT 0.3 /CUMM (0.10-0.60); BASOPHIL % 0 % (0.0-2.0); EOSINOPHIL % 0 % (0-5); GRANULOCYTE % 95.9 % (42.2-75.2); HEMATOCRIT 35.9 % (42-52); MEAN CORPUSCULAR HGB 28.1 PG (27.0-31.0); MEAN CORPUSCULAR HGB CONC 33.5 G/DL (33.0-37.0); MEAN CORPUSCULAR VOLUME 83.8 FL (80.0-94.0); MEAN PLATELET VOLUME 10.2 FL (7.4-10.4); PLATELET COUNT 154 /CUMM (130-400); RBC DISTRIBUTION WIDTH 14.3 % (11.5-14.5); RED BLOOD CELL CT 4.29 /CUMM (4.70-6.10); WHITE BLOOD CELL COUNT 19.3 /CUMM (4.8-10.8)
--- NOTE | 2017-11-16 08:19 | PN- Housestaff ---
Cyndee GARDINER,Surekha 11/16/17 0819: Subjective Follow-up For: Community-acquired pneumonia Subjective: Patient seen and examined at bedside no overnight events. No complaints. Denies shortness of breath, nausea, vomiting, abdominal pain. Review of Systems Constitutional: Reports: no symptoms, see HPI. Objective Last 24 Hrs of Vital Signs/I&O Vital Signs Date Time Temp Pulse Resp B/P B/P Pulse O2 O2 Flow FiO2 Mean Ox Delivery Rate 11/16 1105 93 Nasal 2.0L Cannula 11/16 0852 92 136/72 11/16 0838 89 Nasal 1.0L Cannula 11/16 08 Nasal 2.0L Cannula 11/16 0639 97.5 92 20 136/72 94 11/16 0000 Nasal 3.0L Cannula 11/15 2210 98.1 103 20 138/70 94 Nasal 3.0L Cannula 11/15 1944 Nasal 3.0L Cannula 11/15 1607 93 Nasal 3.0L Cannula 11/15 1600 91 Nasal 3.0L Cannula 11/15 1358 98.5 99 18 120/80 91 Nasal 3.0L Cannula 11/15 1345 Nasal 3.0L Cannula 11/15 1344 101 118/64 11/15 1150 101 118/64 Intake & Output 11/16 1600 11/16 0800 11/16 0000 Intake Total 800 800 Output Total 200 Balance 800 600 Intake, IV 800 800 Output, Urine 200 Physical Exam General Appearance: Alert, Oriented X3, Cooperative, No Acute Distress Cardiovascular: Normal S1, Normal S2, No Murmurs Lungs: b/l wheeze Abdomen: Soft, No Tenderness, No Hepatospenomegaly, No Masses Neurological: Strength at 5/5 X4 Ext, Normal Tone, Sensation Intact, Cranial Nerves 3-12 NL Extremities: No Cyanosis, No Edema, Normal Pulses Current Medications: Current Medications Sig/Evaristo Start time Last Medication Dose Route Stop Time Status Admin Albuterol Sulfate 3 ML EVERY 4 HRS/AWAKE 11/16 1599 AC 11/16 INH 08 Albuterol Sulfate 1 PUF Q4 PRN 11/14 2230 AC 11/15 INH 0617 Aspirin 81 MG DAILY 11/15 899 AC 11/16 PO 08 Atorvastatin Calcium 80 MG DAILY 11/15 899 AC 11/16 PO 08 Azithromycin 500 MG DAILY 11/15 899 AC 11/16 Sodium Chloride 250 ML IV 0853 Ceftriaxone Sodium 1,000 MG DAILY 11/15 899 AC 11/16 IV 0853 Dextrose/Sodium 1,000 ML Q13H 11/16 0715 AC 11/16 Chloride IV 0903 Dextrose/Sodium 1,000 ML Q10H 11/15 1115 DC 11/15 Chloride IV 2046 Guaifenesin 600 MG Q12 11/14 2222 AC 11/16 PO 0852 Heparin Sodium 5,000 UNIT Q8 11/15 06 AC 11/16 (Porcine) SC 06 Insulin Aspart 0 TIDAC 11/15 08 AC 11/16 SC 09 Ipratropium [place] 2.5 ML EVERY 4 HRS/AWAKE 11/15 1600 AC 11/16 INH 0834 Losartan Potassium 100 MG DAILY 11/15 899 DC PO Methylprednisolone 40 MG Q12H 11/16 1800 AC IV Methylprednisolone 40 MG Q8 11/15 1400 DC 11/16 IV 06 Metoprolol Tartrate 50 MG DAILY 11/15 899 AC 11/16 PO 0852 Patient Medication 1 ED ONE ONE 11/15 1215 IN Teaching ED 11/15 1216 Prasugrel 10 MG DAILY 11/15 899 11/16 PO 0852 Last 24 Hrs of Lab/Herrera Results Last 24 Hrs of Labs/Mics: Laboratory Tests 11/16/17 0644: Anion Gap 14, Estimated GFR 30 L, BUN/Creatinine Ratio 32.3 H, CBC w Diff MAN DIFF ORDERED, RBC 4.29 L, MCV 83.8, MCH 28.1, MCHC 33.5, RDW 14.3, MPV 10.2, Gran % 95.9 H, Lymphocytes % 2.7 L, Monocytes % 1.4 L, Eosinophils % 0, Basophils % 0, Absolute Granulocytes 18.5 H, Segmented Neutrophils 88 H, Band Neutrophils 4, Absolute Lymphocytes 0.5 L, Lymphocytes 4 L, Monocytes 3, Absolute Monocytes 0.3, Absolute Eosinophils 0, Absolute Basophils 0, Metamyelocytes 1, Platelet Estimate ADEQUATE 11/15/17 1709: Urine Osmolality 588, Ur Random Creatinine 133.3, U Random Total Protein 27 H, Ur Random Sodium 27 L, Ur Random Potassium 44.1, Fraction Sodium Excret 0.4 Assessment/Plan Assessment: Patient is 72-year-old male with past medical history significant for hypertension, hyperlipidemia, diabetes mellitus, coronary artery disease status post stent placement 2 - 5 years ago on dual antiplatelet therapy, asthma, chronic kidney disease stage II, diffuse osteoarthritis who presented to ED with chief complaint of shortness of breath and progressive weakness over the last 2 day. Problem list Acute hypoxic respiratory failure due to Community-acquired pneumonia Asthma Hypertension and hyperlipidemia Coronary artery disease status post stent placement Diabetes mellitus Chronic kidney disease-stage I Osteoarthritis Plan * Continue ceftriaxone and azithromycin-patient being treated for community- acquired pneumonia. TRC nebulization. Continue albuterol, Mucinex and IV methylprednisone every 8. Patient is growing gram-positive cocci in chains. We will follow up with final cultures. * Fehvoubs-Qasz-Gzbl and NovoLog sliding scale insulin. * Coronary artery disease-continue aspirin, metoprolol 50. Losartan was discontinued in view of acute kidney injury. His baseline creatinine is 1.1 [ spoke to Dr. Rivera's over the phone] his creatinine trend is 2.4-----2.7----- 2.2 This looks most likely dehydration given his phenol less than 0.4. We will continue IV fluids at 75 mL per hour. His renal ultrasound was negative. Patient got echocardiogram done today. He was seen by Dr. [place] Vital who suggested to stop Effient and continue rest of his home medication. * Patient is on 2 L of oxygen. We'll continue weaning him off oxygen. * Continue rest of his medications. * Code-full code * Diet-diabetic diet Problem List: 1. PNA (pneumonia) 2. Acute respiratory failure with hypoxia 3. EVELYN (acute kidney injury) Pain Ratin Pain Location: none Pain Goal: Remain pain free Pain Plan: tylenol Tomorrow's Labs & Rationales: cbc,bep Arian GARDINER,Macarena 11/16/17 1155: Attending MD Review Statement Attending Statement Attending MD Statement: examined this patient, discuss w/resident/PA/[employer] F[employer]ER, agreed w/resident/PA/[employer] T[employer] F[employer]ER, discussed with family, reviewed EMR data (avail), discussed with nursing, discussed with case mgmt, reviewed images, amended to note Attending Assessment/Plan: Patient seen and examined, overall feeling slightly better today. Reading has improved and oxygen requirement has also improved. Vital Signs Date Time Temp Pulse Resp B/P B/P Pulse O2 O2 Flow FiO2 Mean Ox Delivery Rate 11/16 1105 93 Nasal 2.0L Cannula 11/16 0852 92 136/72 11/16 0838 89 Nasal 1.0L Cannula 11/16 0800 Nasal 2.0L Cannula 11/16 0639 97.5 92 20 136/72 94 11/16 0000 Nasal 3.0L Cannula 11/15 2210 98.1 103 20 138/70 94 Nasal 3.0L Cannula 11/15 1944 Nasal 3.0L Cannula 11/15 1607 93 Nasal 3.0L Cannula 11/15 1600 91 Nasal 3.0L Cannula 11/15 1358 98.5 99 18 120/80 91 Nasal 3.0L Cannula 11/15 1345 Nasal 3.0L Cannula 11/15 1344 101 118/64 on exam; aox3, nad. cv; s1,s2, rrr resp; mild expiratory wheeze but much better than before. abd; soft, nt, bs+ ext; no edema Laboratory Tests 11/16 11/15 0644 1709 Chemistry Sodium (137 - 145 mmol/L) 138 Potassium (3.5 - 5.1 mmol/L) 3.5 Chloride (98 - 107 mmol/L) 106 Carbon Dioxide (22 - 30 mmol/L) 18 L Anion Gap (5 - 16) 14 BUN (9 - 20 mg/dL) 71 H Creatinine (0.7 - 1.2 mg/dL) 2.2 H Estimated GFR (>60 ml/min) 30 L BUN/Creatinine Ratio (7 - 25 %) 32.3 H Hematology CBC w Diff MAN DIFF ORDERED WBC (4.8 - 10.8 /CUMM) 19.3 H RBC (4.70 - 6.10 /CUMM) 4.29 L Hgb (14.0 - 18.0 G/DL) 12.0 L Hct (42 - 52 %) 35.9 L MCV (80.0 - 94.0 FL) 83.8 MCH (27.0 - 31.0 PG) 28.1 MCHC (33.0 - 37.0 G/DL) 33.5 RDW (11.5 - 14.5 %) 14.3 Plt Count (130 - 400 /CUMM) 154 MPV (7.4 - 10.4 FL) 10.2 Gran % (42.2 - 75.2 %) 95.9 H Lymphocytes % (20.5 - 51.1 %) 2.7 L Monocytes % (1.7 - 9.3 %) 1.4 L Eosinophils % (0 - 5 %) 0 Basophils % (0.0 - 2.0 %) 0 Absolute Granulocytes (1.4 - 6.5 /CUMM) 18.5 H Segmented Neutrophils (42.2 - 75.2 %) 88 H Band Neutrophils (0.0 - 5.0 %) 4 Absolute Lymphocytes (1.2 - 3.4 /CUMM) 0.5 L Lymphocytes (20.5 - 51.1 %) 4 L Monocytes (1.7 - 9.3 %) 3 Absolute Monocytes (0.10 - 0.60 /CUMM) 0.3 Absolute Eosinophils (0.0 - 0.7 /CUMM) 0 Absolute Basophils (0.0 - 0.2 /CUMM) 0 Metamyelocytes (0.0 - 1.0 %) 1 Platelet Estimate (ADEQUATE) ADEQUATE Urines Urine Osmolality (300 - 1000 MOSM/KG) 588 Ur Random Creatinine (mg/dL) 133.3 U Random Total Protein (0 - 12 mg/dL) 27 H Ur Random Sodium (30 - 90 mmol/L) 27 L Ur Random Potassium (mmol/L) 44.1 Fraction Sodium Excret (<1% %) 0.4 A/P: 72 y/o F with pmh sig for hypertension, hyperlipidemia, diabetes mellitus, coronary artery disease status post stent placement 2, 5 years ago on dual antiplatelet therapy, asthma, chronic kidney disease stage II, diffuse osteoarthritis, admitted with acute respiratory failure secondary to community- acquired pneumonia. Patient also bacteremic with gram-positive cocci in chains. Patient also has acute renal failure on chronic kidney disease. Will follow-up on the blood cultures. Continue current antibiotics. Will taper steroids today. We'll continue to taper her oxygen. Creatinine slightly better. Renal ultrasound negative for any acute finding. We'll continue gentle IV hydration. Patient will be encouraged to ambulate and get a PT evaluation. Continue TRC nebs, inhalers the rest of the management. DVT px; hep sq.
--- NOTE | 2017-11-16 08:34 | Cons- Cardiology ---
General Information and HPI Consulting Request Date of Consult: 11/16/17 Requested By: Macarena Don MD Reason for Consult: Shortness of breath Source of Information: patient, old records Exam Limitations: clinical condition History of Present Illness: Patient is 72-year-old male with past medical history significant for hypertension, hyperlipidemia, diabetes mellitus, coronary artery disease status post stent placement 2 5 years ago on dual antiplatelet therapy, asthma, chronic kidney disease stage II, diffuse osteoarthritis who presented to ED with chief complaint of shortness of breath and progressive weakness over the last 2 day. History was obtained from the patient and his were reported history of shortness of breath over the last 2 days associated with progressive weakness , wheeze, chills, productive cough of white sputum and paroxysmal nocturnal dyspnea. Patient denied fever, chest pain, palpitation, nasal congestion, ear pain, headache, dizziness, orthopnea, leg swelling. No history of sick contact. Patient has been using inhalers more frequent recently, had to visit to [facility] ED over the last couple of month however no admissions. Patient tried Mucinex that helped his cough. The above information was obtained by the admitting resident. Patient denies any chest pain but as noted above and shortness of breath weakness productive cough for about 2-3 days prior to admission. He has had stent placement nearly 5 years ago. Is not had any recurrent cardiac admissions since that time. Consultation was called because of elevated BNP. Allergies/Medications Allergies: Coded Allergies: NO KNOWN ALLERGIES (11/14/17) Home Med List: Albuterol Sulfate (Proair Hfa) 90 MCG HFA.AER.AD 1 PUF INH Q4 PRN SHORTNESS OF BREATH (Reported) Aspirin (Aspirin*) 81 MG TAB.CHEW 1 TAB PO DAILY HEART HEALTH (Reported) Atorvastatin Calcium (Lipitor) 80 MG TABLET 1 TAB PO DAILY CHOLESTEROL ( Reported) Azithromycin (Zithromax) 250 MG TABLET 1 TAB PO DAILY ANTIBIOTIC, INFECTION ( Reported) Ipratropium/Albuterol Sulfate (Iprat-Albut 0.5-3(2.5) MG/3 Ml) 0.5 MG-3 MG (2.5 MG BASE)/3 ML AMPUL.NEB 1 VIAL PO 4 TIMES/DAY BREATHING PROBLEMS (Reported) Losartan Potassium 100 MG TABLET 1 TAB PO DAILY HEART (Reported) Metoprolol Tartrate (Lopressor) 50 MG TABLET 1 TAB PO DAILY HEART (Reported) Prasugrel HCl (Effient) 10 MG TABLET 1 TAB PO DAILY BLOOD THINNER (Reported) Sitagliptin Phos/Metformin HCl (Janumet 50-1,000 MG Tablet) 50 MG-1,000 MG TABLET 1 TAB PO DAILY DIABETES (Reported) Current Medications: Current Medications Sig/Evaristo Start time Last Medication Dose Route Stop Time Status Admin Albuterol Sulfate 3 ML EVERY 4 HRS/AWAKE 11/15 1600 AC 11/15 INH 1943 Albuterol Sulfate 1 PUF Q4 PRN 11/14 2230 AC 11/15 INH 0617 Aspirin 81 MG DAILY 11/15 899 AC 11/15 PO 0842 Atorvastatin Calcium 80 MG DAILY 11/15 899 AC 11/15 PO 0843 Azithromycin 500 MG DAILY 11/15 899 AC 11/15 Sodium Chloride 250 ML IV 0843 Ceftriaxone Sodium 1,000 MG DAILY 11/15 899 AC 11/15 IV 1118 Dextrose/Sodium 1,000 ML Q13H 11/16 0715 AC Chloride IV Dextrose/Sodium 1,000 ML Q10H 11/15 1115 DC 11/15 Chloride IV 2046 Guaifenesin 600 MG Q12 11/14 2222 AC 11/15 PO 2038 Heparin Sodium 5,000 UNIT Q8 11/15 06 AC 11/16 (Porcine) SC 0605 Insulin Aspart 0 TIDAC 11/16 799 AC 11/15 SC 1655 Ipratropium [employer] 2.5 ML EVERY 4 HRS/AWAKE 11/15 1600 AC 11/15 INH 1942 Losartan Potassium 100 MG DAILY 11/15 899 DC PO Methylprednisolone 40 MG Q12H 11/16 1800 AC IV Methylprednisolone 40 MG Q8 11/15 1400 DC 11/16 IV 0605 Methylprednisolone 40 MG Q12 11/15 0900 DC 11/15 IV 0842 Metoprolol Tartrate 50 MG DAILY 11/15 899 AC 11/15 PO 1344 Patient Medication 1 ED ONE ONE 11/15 1215 DC Teaching ED 11/15 1216 Prasugrel 10 MG DAILY 11/15 899 AC 11/15 PO 0842 Review of Systems Review of Systems Constitutional: Reports: see HPI. EENTM: Denies: see HPI. Cardiovascular: Reports: see HPI. Respiratory: Reports: see HPI. GI: Denies: no symptoms. Genitourinary: Denies: no symptoms. Musculoskeletal: Denies: no symptoms. Skin: Denies: no symptoms. Neurological/Psychological: Denies: no symptoms. Hematologic/Endocrine: Denies: no symptoms. Immunologic/Allergic: Denies: no symptoms. 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 Home Smoking Status: Former Smoker ETOH Use: denies use Illicit Drug Use: denies illicit drug use Exam & Diagnostic Data Vital Signs and I&O Vital Signs Date Time Temp Pulse Resp B/P B/P Pulse O2 O2 Flow FiO2 Mean Ox Delivery Rate 11/16 0639 97.5 92 20 136/72 94 11/16 0000 Nasal 3.0L Cannula 11/15 2210 98.1 103 20 138/70 94 Nasal 3.0L Cannula 11/15 1944 Nasal 3.0L Cannula 11/15 1607 93 Nasal 3.0L Cannula 11/15 1600 91 Nasal 3.0L Cannula 11/15 1358 98.5 99 18 120/80 91 Nasal 3.0L Cannula 11/15 1345 Nasal 3.0L Cannula 11/15 1344 101 118/64 11/15 1150 101 118/64 11/15 0956 91 100/58 11/15 0955 91 100/58 Intake & Output 11/16 1600 11/16 0800 11/16 0000 11/15 1600 11/16 0700 11/15 0000 Intake Total 378 644 4015 200 400 Output Total 200 300 Balance 800 600 870 200 400 Intake, IV 800 800 330 Intake, Oral 840 200 400 Output, Urine 200 300 Patient 165 lb Weight Weight Reported by Patient Measurement Method Physical Exam: Exertional exam patient appeared comfortable. Head normocephalic atraumatic Eyes sclera anicteric conjunctiva showed no pallor extraocular muscles were normal Neck no definite jugular venous distention no thyroid masses no palpable nodes no bruits Chest lungs revealed scattered wheezes and rhonchi in the right base Heart regular rhythm with a 1/6 systolic murmur Abdomen soft no organomegaly bowel sounds normal Extremities no clubbing cyanosis or edema Neurological no gross motor or sensory deficits Labs/Herrera Results: Laboratory Tests 11/16 11/15 11/15 11/15 0644 1709 7870 4189 Chemistry Sodium (137 - 145 mmol/L) Pending 140 Potassium (3.5 - 5.1 mmol/L) Pending 3.6 Chloride (98 - 107 mmol/L) Pending 105 Carbon Dioxide (22 - 30 mmol/L) Pending 20 L Anion Gap (5 - 16) Pending 15 BUN (9 - 20 mg/dL) Pending 67 H Creatinine (0.7 - 1.2 mg/dL) Pending 2.7 H Estimated GFR (>60 ml/min) 23 L BUN/Creatinine Ratio (7 - 25 %) Pending 24.8 Hematology CBC w Diff Pending MAN DIFF ORDERED WBC (4.8 - 10.8 /CUMM) Pending 20.1 H RBC (4.70 - 6.10 /CUMM) Pending 4.53 L Hgb (14.0 - 18.0 G/DL) Pending 12.6 L Hct (42 - 52 %) Pending 38.4 L MCV (80.0 - 94.0 FL) Pending 84.9 MCH (27.0 - 31.0 PG) Pending 27.9 MCHC (33.0 - 37.0 G/DL) Pending 32.8 L RDW (11.5 - 14.5 %) Pending 15.1 H Plt Count (130 - 400 /CUMM) Pending 156 MPV (7.4 - 10.4 FL) Pending 10.9 H Gran % (42.2 - 75.2 %) Pending 95.5 H Lymphocytes % (20.5 - 51.1 %) Pending 2.7 L Monocytes % (1.7 - 9.3 %) Pending 1.8 Eosinophils % (0 - 5 %) Pending 0 Basophils % (0.0 - 2.0 %) Pending 0 Absolute Granulocytes (1.4 - 6.5 /CUMM) Pending 19.2 H Segmented Neutrophils (42.2 - 75.2 %) 63 Band Neutrophils (0.0 - 5.0 %) 29 H Absolute Lymphocytes (1.2 - 3.4 /CUMM) Pending 0.6 L Lymphocytes (20.5 - 51.1 %) 5 L Monocytes (1.7 - 9.3 %) 1 L Absolute Monocytes (0.10 - 0.60 /CUMM) Pending 0.4 Absolute Eosinophils (0.0 - 0.7 /CUMM) Pending 0 Absolute Basophils (0.0 - 0.2 /CUMM) Pending 0 Metamyelocytes (0.0 - 1.0 %) 2 H Platelet Estimate (ADEQUATE) VERIFIED BY SMEAR Normocytic RBCs VERIFIED Normochromic RBCs VERIFIED Urines Urine Osmolality (300 - 1000 MOSM/KG) 588 Ur Random Creatinine (mg/dL) 133.3 U Random Total Protein (0 - 12 mg/dL) 27 H Ur Random Sodium (30 - 90 mmol/L) 27 L Ur Random Potassium (mmol/L) 44.1 Fraction Sodium Excret (<1% %) 0.4 08 11/14 2255 1418 Chemistry Sodium (137 - 145 mmol/L) 140 Potassium (3.5 - 5.1 mmol/L) 4.2 Chloride (98 - 107 mmol/L) 104 Carbon Dioxide (22 - 30 mmol/L) 22 Anion Gap (5 - 16) 14 BUN (9 - 20 mg/dL) 46 H Creatinine (0.7 - 1.2 mg/dL) 2.4 H Estimated GFR (>60 ml/min) 27 L BUN/Creatinine Ratio (7 - 25 %) 19.2 Glucose (65 - 99 mg/dL) 153 H Calcium (8.4 - 10.2 mg/dL) 8.4 Troponin I (<0.11 ng/ml) 0.08 0.07 Rnd-Q-Ylhdyrnylfl Pept (<125 pg/mL) 8210 H Coagulation D-Dimer High Sensitivty (0 - 243 ng/ml) 700 H Hematology CBC w Diff MAN DIFF ORDERED WBC (4.8 - 10.8 /CUMM) 16.8 H RBC (4.70 - 6.10 /CUMM) 4.74 Hgb (14.0 - 18.0 G/DL) 13.5 L Hct (42 - 52 %) 40.4 L MCV (80.0 - 94.0 FL) 85.3 MCH (27.0 - 31.0 PG) 28.6 MCHC (33.0 - 37.0 G/DL) 33.5 RDW (11.5 - 14.5 %) 14.0 Plt Count (130 - 400 /CUMM) 159 MPV (7.4 - 10.4 FL) 10.0 Gran % (42.2 - 75.2 %) 92.8 H Lymphocytes % (20.5 - 51.1 %) 4.6 L Monocytes % (1.7 - 9.3 %) 2.5 Eosinophils % (0 - 5 %) 0.1 Basophils % (0.0 - 2.0 %) 0 Absolute Granulocytes (1.4 - 6.5 /CUMM) 15.6 H Segmented Neutrophils (42.2 - 75.2 %) 69 Band Neutrophils (0.0 - 5.0 %) 18 H Absolute Lymphocytes (1.2 - 3.4 /CUMM) 0.8 L Lymphocytes (20.5 - 51.1 %) 10 L Monocytes (1.7 - 9.3 %) 3 Absolute Monocytes (0.10 - 0.60 /CUMM) 0.4 Absolute Eosinophils (0.0 - 0.7 /CUMM) 0 Absolute Basophils (0.0 - 0.2 /CUMM) 0 Platelet Estimate (ADEQUATE) ADEQUATE Poikilocytosis 1+ Anisocytosis 1+ Delbert Cells Diagnostic Data EKG Results Sinus rhythm and was borderline normal. CXR Results A patchy infiltrate is seen in the right middle lobe, consistent with acute pneumonia. Recommend radiographic follow-up to clearance. Other Results VQ scanLow probability of pulmonary embolism. Matched moderately severe nonsegmental ventilation and perfusion abnormalities are likely due to obstructive airway disease or a pneumonitis. Assessment/Plan Assessment/Plan In summary this 72-year-old gentleman has a following problems 1. Pneumonia. By radiological evidence, clinical symptoms, lab investigations, with bacteremia gram-positive cocci. Patient being treated appropriately and clinically admits to feeling better and improved. 2. Coronary artery disease. History of stenting and PCI 5 years ago. Has not had any recurrent cardiac event. Troponins at this time were negative. EKG is unremarkable for ischemia. Since he has been on Effient for greater than 2 years this can be discontinued. 3. Elevated BNP. This is a nonspecific finding especially in the absence of clinical or radiological evidence of congestive heart failure. Echocardiogram has been pending. No change in treatment plan at the moment. 4. Chronic renal insufficiency. Worsened at this time probably secondary to dehydration. 5. Hyperlipidemia 6. Hypertension 7. History of poliomyelitis 8. Type 2 diabetes Will review echocardiogram. At this time to stop Effient. Follow-up chest x- ray is suggested. I do not suspect at this time he is in congestive heart failure and feel elevated BNP is nonspecific finding. Consult Acknowledgment - Thank you for your consult request.
--- NOTE | 2017-11-16 09:16 | Discharge Summary ---
Visit Information Visit Dates Admission Date: 11/14/17 Discharge Date: 11/20/17 Hospital Course Course Attending Physician: Macarena Don MD Primary Care Physician: Everette GARDINER,Abilio Pennington Hospital Course: Patient is 72-year-old male with past medical history significant for hypertension, hyperlipidemia, diabetes mellitus, coronary artery disease status post stent placement 2 5 years ago on dual antiplatelet therapy, asthma, chronic kidney disease stage II, diffuse osteoarthritis who presented to ED with chief complaint of shortness of breath and progressive weakness for 2 days. History was obtained from the patient and his were reported history of shortness of breath for 2 days associated with progressive weakness, wheeze, chills, productive cough of white sputum and paroxysmal nocturnal dyspnea. Patient denied fever, chest pain, palpitation, nasal congestion, ear pain, headache, dizziness, orthopnea, leg swelling. No history of sick contact. Patient has been using inhalers more frequent recently, had to visit to [facility] ED over the last couple of month however no admissions. Patient tried Mucinex that helped his cough. Hospital course Acute hypoxic respiratory failure due to Community-acquired pneumonia- Asthma Hypertension and hyperlipidemia Coronary artery disease status post stent placement Diabetes mellitus Acute on Chronic kidney disease-stage II Osteoarthritis Patient treated for community-acquired pneumonia with IV antibiotics ceftriaxone and azithromycin and also tapering dose of steroid. Patient blood culture grew strep pneumonia. During the hospital course patient developed acute on chronic kidney injury and hence his losartan was held. This was restarted on the day of discharge. Also patient had high blood pressure which was managed initially with amlodipine and hydralazine and hence his creatinine came back to baseline his losartan dose was restarted. Patient blood pressure was 150/70 on the day of discharge. Patient was on sliding scale NovoLog insulin and was resumed his oral hypoglycemic drug upon discharge. Patient was seen by cardiology and had an echo done which showed an ejection fraction of 60% with no obvious regional wall motion abnormalities. And patient's if event was stopped. On the day of discharge patient was on room air and a sample to restart was 92%. Patient sent home with tapering dose of steroid. He completed his course of antibiotics while in the hospital. ----- Echocardiogram Normal left and Right ventricular systolic function. No significant valvular abnormalities. Chest x-ray November 14 A patchy infiltrate is seen in the right middle lobe, consistent with acute pneumonia. Recommend radiographic follow-up to clearance. November 18 Infectious/inflammatory disease of airways and interval improvement of multilobar pneumonia compared to 11/14/2017. Lung VQ scan Low probability of pulmonary embolism. Matched moderately severe nonsegmental ventilation and perfusion abnormalities are likely due to obstructive airway disease or a pneumonitis. Renal ultrasound A simple left renal cyst is incidentally noted. The examination is otherwise unremarkable. Allergies: Coded Allergies: NO KNOWN ALLERGIES (11/14/17) Disposition Summary Disposition Principal Diagnosis: Community-acquired pneumonia Additional Diagnosis: Acute on chronic kidney injury Discharge Disposition: home or self care Discharge Instructions General Discharge Information Code Status: Full Code Patient's Diet: Diabetic diet Patient's Activity: As tolerated Follow-Up Instructions/Appts: Please follow-up with your primary care provider and cage loader within 1-2 weeks of discharge. Medications at Discharge Discharge Medications: Stop taking the following medications: Azithromycin (Zithromax) 250 MG TABLET ORAL DAILY Prasugrel HCl (Effient) 10 MG TABLET ORAL DAILY Continue taking these medications: Ipratropium/Albuterol Sulfate (Iprat-Albut 0.5-3(2.5) MG/3 Ml) 0.5 MG-3 MG (2.5 MG BASE)/3 ML AMPUL.NEB 1 VIAL ORAL 4 TIMES A DAY Comments: Last Taken: 11/20/17 Time: 0900 AM Albuterol Sulfate (Proair Hfa) 90 MCG HFA.AER.AD 1 Puff Inhale through mouth Every 4 hours as needed for SHORTNESS OF BREATH Comments: Last Taken: 11/20/17 Time: 0900 AM Losartan Potassium (Losartan Potassium) 100 MG TABLET 1 Tablet ORAL DAILY Comments: Last Taken: 11/20/17 Time: 0830 AM Sitagliptin Phos/Metformin HCl (Janumet 50-1,000 MG Tablet) 50 MG-1,000 MG TABLET 1 Tablet ORAL DAILY Comments: NOT GIVEN IN HOSPITAL Atorvastatin Calcium (Lipitor) 80 MG TABLET 1 Tablet ORAL DAILY Comments: Last Taken: 11/20/17 Time: 0830 AM Metoprolol Tartrate (Lopressor) 50 MG TABLET 1 Tablet ORAL DAILY Comments: Last Taken: 11/20/17 Time: 0830 AM Aspirin (Aspirin*) 81 MG TAB.CHEW 1 Tablet ORAL DAILY Comments: Last Taken: 11/20/17 Time: 0830 AM Start taking the following new medications: Prednisone (Prednisone) 10 MG TABLET 1 Tablet ORAL DAILY Qty = 18 No Refills Instructions: ... Comments: take 3 tab on November 21-November 23 Take 2 tab on November 24-November 26 Take 1 tab on November 27-November 29 Last Taken: 11/20/17 Time: 0830 AM Copies To: Everette GARDINER,Abilio Pennington
--- NOTE | 2017-11-16 11:15 | ECHOCARDIOGRAM REPORT ---
RUDDY GUERRA Age: 72 : 1945 Gender: M Exam Date: 11/16/2017 07:28 Exam Location: [address] [place] [address] Ht (in): 68 Wt (lb): 165 BSA: 1.90 BP: 118 / 64 Ordering Physician: Surekha Cotter MD Referring Physician: Surekha Cotter MD Technologist: Khang Oliveira [facility] Room Number: 209-1 Indications: Shortness of breath Rhythm: Sinus Technical Quality: fair FINDINGS Left Ventricle Normal global left ventricular size, wall thickness, systolic function with no obvious regional wall motion abnormalities. Normal left ventricular ejection fraction estimated at 60-65%. Right Ventricle Normal right ventricular size and function. Right Atrium Normal right atrial size. Left Atrium Left atrial size at the upper limits of normal. Mitral Valve Mild mitral annular calcification. Trace mitral regurgitation. Aortic Valve Aortic valve is normal in structure and function. Trace aortic regurgitation. Tricuspid Valve Tricuspid valve is normal in structure and function. Mild tricuspid regurgitation. Right ventricular systolic pressure estimated to be elevated at 45 mmHg. Pulmonic Valve Pulmonic valve not well visualized, grossly normal. Pericardium No pericardial effusion. Great Vessels Normal size aortic root. CONCLUSIONS Normal left and Right ventricular systolic function. No significant valvular abnormalities. Phoenix Gonzalez M.D. (Electronically Signed) Final Date: 16 Nov 2017 11:14 MEASUREMENTS (Male / Female) Normal Values 2D ECHO LV Diastolic Diameter PLAX 4.7 cm 4.2 - 5.9 / 3.9 - 5.3 cm LV Systolic Diameter PLAX 3.2 cm 2.1 - 4.0 cm LV Fractional Shortening PLAX 32.3 % 25 - 46 % LV Ejection Fraction 2D Teich 60.6 % IVS Diastolic Thickness 1.0 cm LVPW Diastolic Thickness 1.0 cm LV Relative Wall Thickness 0.4 RV Internal Dim ED PLAX 3.7 cm 1.9 - 3.8 cm LVOT Diameter 2.0 cm Aortic Root Diameter 3.5 cm LA Systolic Diameter LX 3.5 cm 3.0 - 4.0 / 2.7 - 3.8 cm Ascending Aorta Diameter 3.3 cm DOPPLER AV Peak Velocity 127.0 cm/s AV Peak Gradient 6.5 mmHg AV Mean Velocity 97.1 cm/s AV Mean Gradient 4.0 mmHg AV Velocity Time Integral 26.6 cm LVOT Peak Velocity 92.5 cm/s LVOT Peak Gradient 3.4 mmHg LVOT Mean Velocity 58.8 cm/s LVOT Mean Gradient 2.0 mmHg LVOT Velocity Time Integral 22.3 cm LVOT Stroke Volume 70.1 cm AV Area Cont Eq vti 2.6 cm AV Area Cont Eq pk 2.3 cm MV Peak Velocity 99.2 cm/s MV Peak Gradient 3.9 mmHg MV Mean Velocity 68.5 cm/s MV Mean Gradient 2.0 mmHg Mitral E Point Velocity 80.0 cm/s Mitral A Point Velocity 77.5 cm/s Mitral E to A Ratio 1.0 MV PHT Velocity 102.0 cm/s MV Deceleration [place] 310.0 cm/s MV Pressure Half Time 98.7 ms MV Area PHT 2.2 cm MV Deceleration Time 208.0 ms TR Peak Velocity 309.5 cm/s TR Peak Gradient 38.3 mmHg Right Atrial Pressure 10.0 mmHg Pulmonary Artery Systolic Pressu 48.3 mmHg Right Ventricular Systolic Press 48.3 mmHg PV Peak Velocity 59.5 cm/s PV Peak Gradient 1.4 mmHg PV Mean Velocity 47.0 cm/s PV Mean Gradient 1.0 mmHg PV Velocity Time Integral 12.7 cm
[2017-11-16 14:19] VITALS: BP 135/80
[2017-11-16 22:07] VITALS: BP 124/70
[2017-11-17 06:51] VITALS: BP 130/90
[2017-11-17 08:00] LABS: ABSOLUTE BASOPHIL COUNT 0 /CUMM (0.0-0.2); ABSOLUTE EOSINOPHIL COUNT 0 /CUMM (0.0-0.7); ABSOLUTE GRANULOCYTE CT 11.9 /CUMM (1.4-6.5); ABSOLUTE LYMPH COUNT 0.4 /CUMM (1.2-3.4); ABSOLUTE MONOCYTE COUNT 0.4 /CUMM (0.10-0.60); BASOPHIL % 0 % (0.0-2.0); EOSINOPHIL % 0 % (0-5); HEMATOCRIT 32.9 % (42-52); MEAN CORPUSCULAR VOLUME 82.5 FL (80.0-94.0); MEAN PLATELET VOLUME 10.6 FL (7.4-10.4); PLATELET COUNT 136 /CUMM (130-400); RBC DISTRIBUTION WIDTH 14.7 % (11.5-14.5); RED BLOOD CELL CT 3.99 /CUMM (4.70-6.10); WHITE BLOOD CELL COUNT 12.7 /CUMM (4.8-10.8)
[2017-11-17 08:40] LABS: GRANULOCYTE % 93.6 % (42.2-75.2)
--- NOTE | 2017-11-17 08:41 | PN- Housestaff ---
Subjective Follow-up For: Community-acquired pneumonia Subjective: Patient seen and examined at bedside. No overnight events. Patient feels he is getting better. Denies shortness of breath, nausea, vomiting, abdominal pain. Review of Systems Constitutional: Reports: no symptoms, see HPI. Objective Last 24 Hrs of Vital Signs/I&O Vital Signs Date Time Temp Pulse Resp B/P B/P Pulse O2 O2 Flow FiO2 Mean Ox Delivery Rate 11/17 1128 95 Nasal 1.0L Cannula 11/17 0813 87 130/90 11/17 0800 Nasal 2.0L Cannula 11/17 0651 97.5 87 20 130/90 97 Nasal 2.0L Cannula 11/17 0000 Nasal 2.0L Cannula 11/16 2207 98.0 100 20 124/70 92 Nasal 2.0L Cannula 11/16 1639 93 Nasal 2.0L Cannula 11/16 1600 93 Nasal 2.0L Cannula 11/16 1419 135/80 11/16 1408 98.8 87 18 90 Nasal 2.0L Cannula Intake & Output 11/17 1600 11/17 0800 11/17 0000 Intake Total 1080 1250 Output Total 300 Balance 1080 950 Intake, IV 600 470 Intake, Oral 480 780 Number 1 0 Bowel Movements Output, Urine 300 Physical Exam General Appearance: Alert, Oriented X3, Cooperative, No Acute Distress Cardiovascular: Regular Rate, Normal S1, Normal S2, No Murmurs Lungs: Clear to Auscultation Abdomen: Soft, No Tenderness, No Hepatospenomegaly Neurological: Normal Speech, Strength at 5/5 X4 Ext, Normal Tone, Sensation Intact Extremities: No Cyanosis, No Edema, Normal Pulses Current Medications: Current Medications Sig/Evaristo Start time Last Medication Dose Route Stop Time Status Admin Albuterol Sulfate 3 ML EVERY 4 HRS/AWAKE 11/15 1600 AC 11/17 INH 1127 Albuterol Sulfate 1 PUF Q4 PRN 11/14 2230 AC 11/15 INH 0617 Aspirin 81 MG DAILY 11/15 899 AC 11/17 PO 08 Atorvastatin Calcium 80 MG DAILY 11/15 899 AC 11/17 PO 0814 Azithromycin 500 MG DAILY 11/18 899 AC PO Azithromycin 500 MG DAILY 11/15 899 DC 11/17 Sodium Chloride 250 ML IV 08 Ceftriaxone Sodium 1,000 MG DAILY 11/15 899 AC 11/17 IV 08 Dextrose/Sodium 1,000 ML Q13H 11/16 0715 11/17 Chloride IV 0016 Guaifenesin 600 MG Q12 11/14 2222 11/17 PO 0814 Heparin Sodium 5,000 UNIT Q8 11/15 0600 11/17 (Porcine) SC 1304 Insulin Aspart 0 TIDAC 11/15 0800 11/17 SC 1304 Insulin Detemir 3 UNITS BID 11/17 0915 11/17 SC 1304 Ipratropium [place] 2.5 ML EVERY 4 HRS/AWAKE 11/15 1600 11/17 INH 1127 Methylprednisolone 40 MG Q12H 11/16 1800 [place] 11/17 IV 0558 Metoprolol Tartrate 50 MG DAILY 11/15 09 11/17 PO 0813 Patient Medication 1 ED ONE ONE 11/17 0945 [place] Teaching ED 11/17 0946 Patient Medication 1 ED ONE ONE 11/16 1630 [facility] ED 11/16 1631 Prednisone 40 MG DAILY 11/17 09 11/17 PO 1305 Last 24 Hrs of Lab/Herrera Results Last 24 Hrs of Labs/Mics: Laboratory Tests 11/17/17 0610: Anion Gap 13, Estimated GFR 35 L, BUN/Creatinine Ratio 34.2 H, CBC w Diff NO MAN DIFF REQ, RBC 3.99 L, MCV 82.5, MCH 28.0, MCHC 34.0, RDW 14.7 H, MPV 10.6 H, Gran % 93.6 H, Lymphocytes % 3.3 L, Monocytes % 3.1, Eosinophils % 0, Basophils % 0, Absolute Granulocytes 11.9 H, Absolute Lymphocytes 0.4 L, Absolute Monocytes 0.4, Absolute Eosinophils 0, Absolute Basophils 0 Assessment/Plan Assessment: Patient is 72-year-old male with past medical history significant for hypertension, hyperlipidemia, diabetes mellitus, coronary artery disease status post stent placement 2 - 5 years ago on dual antiplatelet therapy, asthma, chronic kidney disease stage II, diffuse osteoarthritis who presented to ED with chief complaint of shortness of breath and progressive weakness over the last 2 day. Problem list Acute hypoxic respiratory failure due to Community-acquired pneumonia Asthma Hypertension and hyperlipidemia Coronary artery disease status post stent placement Diabetes mellitus Chronic kidney disease-stage II Osteoarthritis Plan * Continue ceftriaxone and switched to by mouth azithromycin-patient being treated for community-acquired pneumonia. TRC nebulization. Continue albuterol , Mucinex and by mouth prednisone today. Patient is growing gram-positive cocci in chains, Confirmed with microbiology that patient is growing strep pneuWe will follow up with final cultures. * Nazgbtxt-Lvwn-Dyek and NovoLog sliding scale insulin. Patient blood sugar runs in the 300s. Morning fasting blood sugar is 393. Patient is on IV steroids. We will start him on Levemir 3 twice a day for now. Patient went gets discharge we'll switch him to see sitagliptan or other oral hypoglycemic agent in view of kidney injury. We will avoid metformin. * Coronary artery disease-continue aspirin, metoprolol 50. Losartan was discontinued in view of acute kidney injury. His baseline creatinine is 1.1 [ spoke to Dr. Rivera's over the phone] his creatinine trend is 2.4-----2.7----- 2.2----1.9. We will continue IV fluids at 75 mL per hour. His renal ultrasound was negative. Patient got echocardiogram done which was normal. Patient's Effient was stopped yesterday. continue rest of his home medication. * Patient is on 2 L of oxygen. We will keep him at 1 L for now and continue weaning him off of oxygen. * Code-full code * Diet-diabetic diet Problem List: 1. Acute respiratory failure with hypoxia 2. PNA (pneumonia) 3. EVELYN (acute kidney injury) Pain Ratin Pain Location: none Pain Goal: Remain pain free Pain Plan: tylenol Tomorrow's Labs & Rationales: cbc,bep
--- NOTE | 2017-11-17 12:14 | PN- Att Addend ---
Attending Addendum Attending Brief Note Patient seen and examined, overall doing better. Oxygen requirement is 2 L. He overall feels better in terms of his breathing. I called microbiology about his blood cultures and they told me that the blood culture results will be finalized in the next 15 mins. Vital Signs Date Time Temp Pulse Resp B/P B/P Pulse O2 O2 Flow FiO2 Mean Ox Delivery Rate 11/17 1128 95 Nasal 1.0L Cannula 11/17 0813 87 130/90 11/17 0651 97.5 87 20 130/90 97 Nasal 2.0L Cannula 11/17 0000 Nasal 2.0L Cannula 11/16 2207 98.0 100 20 124/70 92 Nasal 2.0L Cannula 11/16 1639 93 Nasal 2.0L Cannula 11/16 1600 93 Nasal 2.0L Cannula 11/16 1419 135/80 11/16 1408 98.8 87 18 90 Nasal 2.0L Cannula on exam; aoxd, nad. cv; s1, s2, rrr resp; + junky bs overall. abd; soft, nt, bs+ ext: no edema Laboratory Tests 11/17 0610 Chemistry Sodium (137 - 145 mmol/L) 138 Potassium (3.5 - 5.1 mmol/L) 3.9 Chloride (98 - 107 mmol/L) 107 Carbon Dioxide (22 - 30 mmol/L) 18 L Anion Gap (5 - 16) 13 BUN (9 - 20 mg/dL) 65 H Creatinine (0.7 - 1.2 mg/dL) 1.9 H Estimated GFR (>60 ml/min) 35 L BUN/Creatinine Ratio (7 - 25 %) 34.2 H Hematology CBC w Diff NO MAN DIFF REQ WBC (4.8 - 10.8 /CUMM) 12.7 H RBC (4.70 - 6.10 /CUMM) 3.99 L Hgb (14.0 - 18.0 G/DL) 11.2 L Hct (42 - 52 %) 32.9 L MCV (80.0 - 94.0 FL) 82.5 MCH (27.0 - 31.0 PG) 28.0 MCHC (33.0 - 37.0 G/DL) 34.0 RDW (11.5 - 14.5 %) 14.7 H Plt Count (130 - 400 /CUMM) 136 MPV (7.4 - 10.4 FL) 10.6 H Gran % (42.2 - 75.2 %) 93.6 H Lymphocytes % (20.5 - 51.1 %) 3.3 L Monocytes % (1.7 - 9.3 %) 3.1 Eosinophils % (0 - 5 %) 0 Basophils % (0.0 - 2.0 %) 0 Absolute Granulocytes (1.4 - 6.5 /CUMM) 11.9 H Absolute Lymphocytes (1.2 - 3.4 /CUMM) 0.4 L Absolute Monocytes (0.10 - 0.60 /CUMM) 0.4 Absolute Eosinophils (0.0 - 0.7 /CUMM) 0 Absolute Basophils (0.0 - 0.2 /CUMM) 0 A/P; 72 y/o F with pmh sig for hypertension, hyperlipidemia, diabetes mellitus, coronary artery disease status post stent placement 2, 5 years ago on dual antiplatelet therapy, asthma, chronic kidney disease stage II, diffuse osteoarthritis, admitted with acute respiratory failure secondary to community- acquired pneumonia. Patient also bacteremic with gram-positive cocci in chains. Patient also has acute renal failure on chronic kidney disease. Creatinine slowly improving with IV hydration. Will continue IV fluids. Blood cultures will be finalized in the next few minutes. Continue current antibiotics including ceftriaxone and his throat. Agree with switching to oral prednisone. Continue TRC nebs. Noted hyperglycemia which is likely steroid induced. Can start low-dose Levemir at 3 units twice a day and continue the sliding scale. If patient's creatinine comes back to her baseline then she will be resumed back on her Janumet otherwise we will have to switch to a different oral hypoglycemic agent upon discharge. DVT px: Heparin subcutaneous. Possible discharge in next 1-2 days.
[2017-11-17 14:03] VITALS: BP 135/58
[2017-11-17 14:06] VITALS: BP 140/78
[2017-11-17 21:35] VITALS: BP 154/100
[2017-11-18] MEDS ORDERED: AUGMENTIN 875-1 EACH PO (05:34)
--- NOTE | 2017-11-18 05:36 | Patient Discharge Instructions ---
Discharge Instructions General Discharge Information You were seen/treated for: community acquired pneumonia Diet Continue normal diet: No Recommended Diet: Heart Healthy Activity Full Activity/No Limits: No Activity Self Limited: Yes Acute Coronary Syndrome Inclusion Criteria At DC or during hospital stay patient has or had the following: ACS DIAGNOSIS No Discharge Core Measures Meds if any: Prescribed or Continued at Discharge Meds if any: NOT Prescribed or Continued at Discharge Congestive Heart Failure Inclusion Criteria At DC or during hospital stay patient has or had the following: CHF DIAGNOSIS No Discharge Core Measures Meds if any: Prescribed or Continued at Discharge Meds if any: NOT Prescribed or Continued at Discharge Cerebrovascular accident Inclusion Criteria At DC or during hospital stay patient has or had the following: CVA/TIA Diagnosis No Discharge Core Measures Meds if any: Prescribed or Continued at Discharge Meds if any: NOT Prescribed or Continued at Discharge Venous thromboembolism Inclusion Criteria VTE Diagnosis No VTE Type NONE VTE Confirmed by (Test) NONE Discharge Core Measures - Per Current guidelines, there needs to be overlap - treatment for the first 5 days of Warfarin therapy. - If discharged on Warfarin prior to 5 days of - overlap therapy, the patient will need to be - assessed for post discharge needs including - *Post discharge parental anticoagulation - *Warfarin and/or parental anticoagulation education - *Follow up date to check INR post discharge At least 5 days overlap therapy as Inpatient No Meds if any: Prescribed or Continued at Discharge Note: Overlap Therapy is Warfarin and Anticoagulant Meds if any: NOT Prescribed or Continued at Discharge
--- NOTE | 2017-11-18 05:38 | PN- Housestaff ---
Cyndee GARDINER,Surekha 11/18/17 0538: Subjective Follow-up For: Community-acquired pneumonia Subjective: Patient seen and examined at bedside. No overnight events. Patient feels he is getting better. Denies shortness of breath, chest pain. Review of Systems Constitutional: Reports: no symptoms, see HPI. Objective Last 24 Hrs of Vital Signs/I&O Vital Signs Date Time Temp Pulse Resp B/P B/P Pulse O2 O2 Flow FiO2 Mean Ox Delivery Rate 11/18 0738 94 Nasal 2.0L Cannula 11/18 0642 98.1 102 20 156/86 95 11/18 0000 95 Nasal 1.0L Cannula 11/17 2135 98.1 95 20 154/100 94 Nasal 1.0L Cannula 11/17 1626 95 Nasal 1.0L Cannula 11/17 1600 Nasal 1.0L Cannula 11/17 1406 98.0 94 20 140/78 92 Nasal Cannula 11/17 1403 97.3 61 20 135/58 92 Nasal Cannula 11/17 1128 95 Nasal 1.0L Cannula 11/17 0813 87 130/90 Intake & Output 11/18 1600 11/18 0800 05 0000 Intake Total 720 Output Total 450 Balance 270 Intake, IV 600 Intake, Oral 120 Output, Urine 450 Physical Exam General Appearance: Alert, Oriented X3, Cooperative, No Acute Distress Cardiovascular: Regular Rate, Normal S1, Normal S2, No Murmurs Lungs: Normal Air Movement Abdomen: Soft, No Tenderness, No Hepatospenomegaly Neurological: Strength at 5/5 X4 Ext, Normal Tone, Sensation Intact Extremities: No Edema Current Medications: Current Medications Sig/Evaristo Start time Last Medication Dose Route Stop Time Status Admin Albuterol Sulfate 3 ML EVERY 4 HRS/AWAKE 11/16 1599 AC 11/18 INH 0737 Albuterol Sulfate 1 PUF Q4 PRN 11/14 2230 AC 11/15 INH 0617 Aspirin 81 MG DAILY 11/15 899 AC 11/17 PO 0814 Atorvastatin Calcium 80 MG DAILY 11/15 899 AC 11/17 PO 0814 Azithromycin 500 MG DAILY 11/18 899 CAN PO Azithromycin 500 MG DAILY 11/15 899 DC 11/17 Sodium Chloride 250 ML IV 0813 Ceftriaxone Sodium 1,000 MG DAILY 11/15 899 AC 11/17 IV 0813 Dextrose/Sodium 1,000 ML Q13H 11/16 714 AC 11/18 Chloride IV 0700 Guaifenesin 600 MG Q12 11/14 2222 AC 11/17 PO 2130 Heparin Sodium 5,000 UNIT Q8 11/15 0600 AC 11/18 (Porcine) SC 0531 Insulin Aspart 0 TIDAC 11/15 0800 AC 11/17 SC 1728 Insulin Detemir 3 UNITS BID 11/17 0915 AC 11/17 SC 2130 Ipratropium [place] 2.5 ML EVERY 4 HRS/AWAKE 11/15 1600 AC 11/18 INH 0737 Methylprednisolone 40 MG Q12H 11/16 1800 [place] 11/17 IV 0558 Metoprolol Tartrate 50 MG DAILY 11/15 09 AC 11/17 PO 0813 Patient Medication 1 ED ONE ONE 11/17 0945 [place] Teaching ED 11/17 09 Prednisone 40 MG DAILY 11/17 09 AC 11/17 PO 1305 Last 24 Hrs of Lab/Herrera Results Last 24 Hrs of Labs/Mics: Laboratory Tests 11/18/17 0715: Sodium Pending, Potassium Pending, Chloride Pending, Carbon Dioxide Pending, Anion Gap Pending, BUN Pending, Creatinine Pending, BUN/Creatinine Ratio Pending , CBC w Diff Pending, WBC Pending, RBC Pending, Hgb Pending, Hct Pending, MCV Pending, MCH Pending, MCHC Pending, RDW Pending, Plt Count Pending, MPV Pending Assessment/Plan Assessment: Patient is 72-year-old male with past medical history significant for hypertension, hyperlipidemia, diabetes mellitus, coronary artery disease status post stent placement 2 - 5 years ago on dual antiplatelet therapy, asthma, chronic kidney disease stage II, diffuse osteoarthritis who presented to ED with chief complaint of shortness of breath and progressive weakness over the last 2 day. Problem list Acute hypoxic respiratory failure due to Community-acquired pneumonia-resolving Asthma Hypertension and hyperlipidemia Coronary artery disease status post stent placement Diabetes mellitus Chronic kidney disease-stage II Osteoarthritis Plan * Patient blood culture growing strep pneumonia . Continue ceftriaxone. Patient still has wheezes bilaterally. Continue prednisone and give 1 dose of IV methylprednisone 40 today today. Repeat chest x-ray. TRC nebulization. Continue albuterol, Mucinex and by mouth prednisone today. * Gqmvmdet-Ufcu-Vykw and NovoLog sliding scale insulin. Patient blood sugar runs in the 300s. Morning fasting blood sugar is 393. Patient is on IV steroids. We will start him on Levemir 3 twice a day for now. Patient went gets discharge we'll switch him to see sitagliptan or other oral hypoglycemic agent in view of kidney injury. We will avoid metformin. * Coronary artery disease-continue aspirin, metoprolol 50. Losartan was discontinued in view of acute kidney injury. His baseline creatinine is 1.1 [ spoke to Dr. Rivera's over the phone] his creatinine trending down- 2.4-----2.7- ----2.2----1.9---1.6. Discontinue IV fluids. His renal ultrasound was negative. Patient got echocardiogram done which was normal. Patient's Effient was stopped. continue rest of his home medication. * Patient is on 1 L of oxygen. We will keep him at 1L for now and continue weaning him off of oxygen. * Code-full code * Diet-diabetic diet Problem List: 1. PNA (pneumonia) 2. EVELYN (acute kidney injury) Pain Ratin Pain Location: none Pain Goal: Remain pain free Pain Plan: tylenol Tomorrow's Labs & Rationales: none Arian GARDINER,Macarena 11/18/17 1455: Attending MD Review Statement Attending Statement Attending MD Statement: examined this patient, discuss w/resident/PA/VB NET PROGRAMMER, agreed w/resident/PA/VB NET PROGRAMMER, reviewed EMR data (avail), discussed with nursing, reviewed images, amended to note Attending Assessment/Plan: Patient seen and examined, overall doing better and oxygen requirement has improved. I dissected count remains in the 12 planes. His lung exam continues to show bilateral wheezing. Creatinine also improving. We repeated his chest x -ray which shows some improvement. At this point we'll continue the by mouth prednisone and given extra dose of IV Solu-Medrol later this afternoon at 40 mg. Continue current antibiotics. Will stop IV fluids and encourage by mouth fluids. If creatinine continues to improve by tomorrow and it is less than 1.5, patient can likely be discharged home on oral hypoglycemic home regimen. Noted hyperglycemia which is steroid- induced. At this point we will increase the dose of his Levemir to 5 units twice a day. Continue the rest of the management. Patient was encouraged to ambulate. Please check admitted to the O2 sat to see if patient needs to go home with oxygen.
[2017-11-18 06:42] VITALS: BP 156/86
[2017-11-18 08:22] LABS: ABSOLUTE BASOPHIL COUNT 0 /CUMM (0.0-0.2); ABSOLUTE EOSINOPHIL COUNT 0 /CUMM (0.0-0.7); ABSOLUTE GRANULOCYTE CT 11.1 /CUMM (1.4-6.5); ABSOLUTE LYMPH COUNT 0.6 /CUMM (1.2-3.4); BASOPHIL % 0 % (0.0-2.0); EOSINOPHIL % 0 % (0-5); GRANULOCYTE % 87.7 % (42.2-75.2); HEMATOCRIT 36.3 % (42-52); MEAN CORPUSCULAR HGB 28.2 PG (27.0-31.0); MEAN CORPUSCULAR HGB CONC 33.5 G/DL (33.0-37.0); MEAN CORPUSCULAR VOLUME 83.9 FL (80.0-94.0); MEAN PLATELET VOLUME 10.2 FL (7.4-10.4); PLATELET COUNT 147 /CUMM (130-400); RBC DISTRIBUTION WIDTH 14.6 % (11.5-14.5); RED BLOOD CELL CT 4.33 /CUMM (4.70-6.10); WHITE BLOOD CELL COUNT 12.6 /CUMM (4.8-10.8)
--- NOTE | 2017-11-18 10:59 | RADIOLOGY REPORT ---
EXAMINATION: XR CHEST CLINICAL INFORMATION: Cough COMPARISON: 11/14/2017 TECHNIQUE: 2 views of the chest were obtained. FINDINGS: Peribronchial interstitial thickening in both lungs. The airspace opacity of the right middle lobe has decreased compared to 11/14/2017. There appears to be persistent but decreased mild patchy opacity in right lower lobe, and possibly in retrocardiac region of left lower lobe, as well. There is likely a trace amount of fluid in the right major fissure. Cardiac silhouette is normal in size. The hilar contours are normal. No acute osseous abnormality. IMPRESSION: Infectious/inflammatory disease of airways and interval improvement of multilobar pneumonia compared to 11/14/2017.
[2017-11-18 14:51] VITALS: BP 140/84
[2017-11-18 21:56] VITALS: BP 180/88
[2017-11-19 04:44] VITALS: BP 170/90
--- NOTE | 2017-11-19 06:14 | PN- Housestaff ---
Cyndee GARDINER,Surekha 11/19/17 0613: Subjective Follow-up For: Community-acquired pneumonia Complaints: no complaints Subjective: Patient seen and examined at bedside. Overnight patient had high blood pressure and was given amlodipine and hydralazine. Patient said he was anxious during the same time. His anxiety is related to his prolonged hospital stay. He denies shortness of breath, chest pain, abdominal pain, headache, weakness. Review of Systems Constitutional: Reports: no symptoms, see HPI. Objective Last 24 Hrs of Vital Signs/I&O Vital Signs Date Time Temp Pulse Resp B/P B/P Pulse O2 O2 Flow FiO2 Mean Ox Delivery Rate 11/19 1150 95 Room Air Room Air 11/19 0905 160/94 11/19 0800 96 Room Air 11/19 0749 86 170/90 11/19 0444 97.8 86 20 170/90 96 11/19 0320 190/114 11/19 0046 94 174/104 11/19 0000 Room Air 11/18 2156 97.7 60 20 180/88 94 11/18 1625 96 Room Air 11/18 1600 94 Room Air 11/18 1451 98.0 85 20 140/84 94 Room Air Physical Exam General Appearance: Alert, Oriented X3, Cooperative, No Acute Distress Cardiovascular: Regular Rate, Normal S1, Normal S2, No Murmurs Lungs: Clear to Auscultation Abdomen: Soft, No Tenderness, No Hepatospenomegaly Neurological: Normal Speech, Normal Tone, Sensation Intact, Cranial Nerves 3-12 NL Extremities: No Cyanosis, No Edema Current Medications: Current Medications Sig/Evaristo Start time Last Medication Dose Route Stop Time Status Admin Albuterol Sulfate 3 ML EVERY 4 HRS/AWAKE 11/15 1600 AC 11/19 INH 1148 Albuterol Sulfate 1 PUF Q4 PRN 11/14 2230 AC 11/15 INH 0617 Amlodipine Besylate 5 MG ONCE ONE 11/19 0030 DC 11/19 PO 11/19 0031 0046 Aspirin 81 MG DAILY 11/15 899 AC 11/19 PO 0749 Atorvastatin Calcium 80 MG DAILY 11/15 899 AC 11/19 PO 0749 Calcium Carbonate 500 MG DAILY 11/18 0915 AC 11/19 PO 0749 Ceftriaxone Sodium 1,000 MG DAILY 11/15 899 AC 11/19 IV 0749 Guaifenesin 600 MG Q12 11/14 2222 AC 11/19 PO 0749 Heparin Sodium 5,000 UNIT Q8 11/15 0600 AC 11/19 (Porcine) SC 0700 Hydralazine HCl 10 MG ONCE ONE 11/19 0245 DC 11/19 PO 11/19 0246 0320 Insulin Aspart 0 TIDAC 11/15 0800 AC 11/19 SC 1151 Insulin Detemir 5 UNITS BID 11/18 2100 AC 11/19 SC 0749 Insulin Detemir 3 UNITS BID 11/17 0915 DC 11/18 SC 0820 Ipratropium [place] 2.5 ML EVERY 4 HRS/AWAKE 11/15 1600 AC 11/19 INH 1148 Methylprednisolone 40 MG ONCE ONE 11/18 1400 DC 11/18 IV 11/18 1401 1414 Metoprolol Tartrate 50 MG DAILY 11/15 09 AC 11/19 PO 0749 Prednisone 40 MG DAILY 11/19 0900 AC 11/19 PO 0748 Last 24 Hrs of Lab/Herrera Results Last 24 Hrs of Labs/Mics: Laboratory Tests 11/19/17 1100: Sodium Pending, Potassium Pending, Chloride Pending, Carbon Dioxide Pending, Anion Gap Pending, BUN Pending, Creatinine Pending, BUN/Creatinine Ratio Pending Assessment/Plan Assessment: Patient is 72-year-old male with past medical history significant for hypertension, hyperlipidemia, diabetes mellitus, coronary artery disease status post stent placement 2 - 5 years ago on dual antiplatelet therapy, asthma, chronic kidney disease stage II, diffuse osteoarthritis who presented to ED with chief complaint of shortness of breath and progressive weakness over the last 2 day. Problem list Acute hypoxic respiratory failure due to Community-acquired pneumonia-resolving Asthma Hypertension and hyperlipidemia Coronary artery disease status post stent placement Diabetes mellitus Chronic kidney disease-stage II Osteoarthritis Plan * Patient blood culture growing strep pneumonia . Continue ceftriaxone. Patient still has wheezes bilaterally. Continue prednisone and give 1 dose of IV methylprednisone 40 today today. Repeat chest x-ray. TRC nebulization. Continue albuterol, Mucinex and by mouth prednisone today. * Patient had high blood pressure last night. Was given amlodipine and hydralazine for the same. Patient home was losartan was held in view of elevated creatinine. If his creatinine is less than 1.5 we will resume losartan * Ovsotwyf-Rhev-Hpuw and NovoLog sliding scale insulin. Patient blood sugar runs in the 300s. Morning fasting blood sugar is 393. Patient is on IV steroids. We will start him on Levemir 3 twice a day for now. Patient went gets discharge we'll switch him to see sitagliptan or other oral hypoglycemic agent in view of kidney injury. We will avoid metformin. * Coronary artery disease-continue aspirin, metoprolol 50. Losartan was discontinued in view of acute kidney injury. His baseline creatinine is 1.1 [ spoke to Dr. Rivera's over the phone] his creatinine trending down- 2.4-----2.7- ----2.2----1.9---1.6. We will follow up today BP. His renal ultrasound was negative. Patient got echocardiogram done which was normal. Patient's Effient was stopped. continue rest of his home medication. * Patient is on 1 L of oxygen. We will keep him at 1L for now and continue weaning him off of oxygen. * Code-full code * Diet-diabetic diet Problem List: 1. Acute respiratory failure with hypoxia 2. PNA (pneumonia) 3. EVELYN (acute kidney injury) Pain Ratin Pain Location: none Pain Goal: Remain pain free Pain Plan: tylenol Tomorrow's Labs & Rationales: cbc,bep Arian GARDINER,Macarena 11/19/17 1347: Attending MD Review Statement Attending Statement Attending MD Statement: examined this patient, discuss w/resident/PA/SLIVER HANDLER, agreed w/resident/PA/SLIVER HANDLER, reviewed EMR data (avail), discussed with nursing, discussed with case mgmt, reviewed images, amended to note Attending Assessment/Plan: Patient seen and examined, breathing status is improving but this morning patient was very hypertensive requiring 1 dose of amlodipine as well as hydralazine. This is likely secondary to the fact that be held patient's antihypertensives which included commendation of A. fib and diuretic at the admission. Now that his creatinine is improving, likely tomorrow we should be able to resume his home and he hypertensive. I have ordered another dose of amlodipine for this afternoon so that his blood pressure again remained under control over the next 24 hours. I've also increase the dose of his Levemir as his blood sugars continue to remain high. Patient has been started on by mouth prednisone. Continue IV ceftriaxone today and nectar tomorrow we should be able to switch him to oral. If patient breathing continues to improve and blood pressure remained stable likely can be discharged home tomorrow on oral antibiotics. Upon discharge we should be able to resume his oral hypoglycemics as well as his home and he hypertensive regimen. Please recheck BEP and cbc tomorrow.
[2017-11-19 09:05] VITALS: BP 160/94
[2017-11-19 14:53] VITALS: BP 150/90
[2017-11-19 21:24] VITALS: BP 141/88
[2017-11-20 06:25] VITALS: BP 152/84
--- NOTE | 2017-11-20 07:11 | PN- Housestaff ---
Subjective Follow-up For: Community-acquired pneumonia Subjective: Patient seen and examined at bedside. No overnight events. He denies fever, chills, shortness of breath. Review of Systems Constitutional: Reports: no symptoms, see HPI. Objective Last 24 Hrs of Vital Signs/I&O Vital Signs Date Time Temp Pulse Resp B/P B/P Pulse O2 O2 Flow FiO2 Mean Ox Delivery Rate 11/20 0855 94 Room Air 11/20 0800 92 Room Air Room Air 11/20 0625 97.8 87 18 152/84 92 11/20 0000 Room Air 11/19 2124 98.4 99 18 141/88 94 11/19 2026 96 Room Air 11/19 1626 94 150/90 11/19 1600 94 Room Air 11/19 1557 95 Room Air Intake & Output 11/20 1600 11/20 0800 11/20 0000 Intake Total 480 490 Output Total Balance 480 490 Intake, IV 0 10 Intake, Oral 480 480 Number 0 0 Bowel Movements Physical Exam General Appearance: Alert, Oriented X3, Cooperative Cardiovascular: Regular Rate, Normal S1, Normal S2 Lungs: Clear to Auscultation Abdomen: Soft, No Tenderness, No Hepatospenomegaly Neurological: Normal Speech, Strength at 5/5 X4 Ext, Normal Tone, Sensation Intact Extremities: No Edema Current Medications: Current Medications Sig/Evaristo Start time Last Medication Dose Route Stop Time Status Admin Acetaminophen 650 MG ONCE ONE 11/19 2014 DC 11/19 PO 11/19 Albuterol Sulfate 3 ML EVERY 4 HRS/AWAKE 11/15 1600 DCD 11/20 INH 1225 Albuterol Sulfate 1 PUF Q4 PRN 11/14 2230 DCD 11/15 INH 0617 Amlodipine Besylate 5 MG ONCE ONE 11/19 1600 DC 11/19 PO 11/19 1601 1626 Aspirin 81 MG DAILY 11/15 899 DCD 11/20 PO 0825 Atorvastatin Calcium 80 MG DAILY 11/15 899 DCD 11/20 PO 0825 Calcium Carbonate 500 MG DAILY 11/18 914 DCD 11/20 PO 0825 Ceftriaxone Sodium 1,000 MG DAILY 11/15 899 DCD 11/20 IV 0825 Guaifenesin 600 MG Q12 11/14 2221 DCD 11/20 PO 0825 Heparin Sodium 5,000 UNIT Q8 11/15 599 DCD 11/20 (Porcine) SC 0503 Insulin Aspart 0 TIDAC 11/15 0800 DCD 11/19 SC 1756 Insulin Detemir 6 UNITS BID 11/19 2100 DCD 11/20 SC 0824 Ipratropium Coats 2.5 ML EVERY 4 HRS/AWAKE 11/15 1600 DCD 11/20 INH 1224 Losartan Potassium 100 MG DAILY 11/20 0900 DCD 11/20 PO 0826 Metoprolol Tartrate 50 MG DAILY 11/15 0900 DCD 11/20 PO 0825 Oxycodone/ 1 TAB ONCE ONE 11/20 0515 DC 11/20 Acetaminophen PO 11/20 0516 0542 Patient Medication 1 ED ONE 11/20 0000 NR Teaching ED 11/20 2359 Potassium Chloride 40 MEQ 0845 11/20 0845 DC PO 11/20 0846 Prednisone 40 MG DAILY 11/19 0900 DCD 11/20 PO 0825 Last 24 Hrs of Lab/Herrera Results Last 24 Hrs of Labs/Mics: Laboratory Tests 11/20/17 0640: Anion Gap 11, Estimated GFR 60, BUN/Creatinine Ratio 33.3 H, CBC w Diff MAN DIFF ORDERED, RBC 4.84, MCV 84.0, MCH 27.8, MCHC 33.1, RDW 14.9 H, MPV 9.9, Gran % 84.3 H, Lymphocytes % 10.5 L, Monocytes % 4.5, Eosinophils % 0.5, Basophils % 0.2, Absolute Granulocytes 10.5 H, Segmented Neutrophils 79 H, Band Neutrophils 1, Absolute Lymphocytes 1.3, Lymphocytes 11 L, Monocytes 5, Absolute Monocytes 0.6, Eosinophils 2, Absolute Eosinophils 0.1, Absolute Basophils 0, Metamyelocytes 1, Myelocytes 1 H, Platelet Estimate ADEQUATE, Normochromic RBCs VERIFIED, Anisocytosis 1+, Delbert Cells FEW Assessment/Plan Assessment: Patient is 72-year-old male with past medical history significant for hypertension, hyperlipidemia, diabetes mellitus, coronary artery disease status post stent placement 2 - 5 years ago on dual antiplatelet therapy, asthma, chronic kidney disease stage II, diffuse osteoarthritis who presented to ED with chief complaint of shortness of breath and progressive weakness over the last 2 day. Problem list Acute hypoxic respiratory failure due to Community-acquired pneumonia-resolving Asthma Hypertension and hyperlipidemia Coronary artery disease status post stent placement Diabetes mellitus Chronic kidney disease-stage II Osteoarthritis Plan * Patient blood culture growing strep pneumonia . Continue ceftriaxone. Patient still has wheezes bilaterally. Continue prednisone and give 1 dose of IV methylprednisone 40 today today. Repeat chest x-ray. TRC nebulization. Continue albuterol, Mucinex and by mouth prednisone today. * Patient had high blood pressure yesterday. Today blood pressure 150/70. His creatinine has trended down to 1.2. We will resume his losartan. * [employer]-M[employer]x-Abwg and NovoLog sliding scale insulin. Patient will go home with this oral hypoglycemic Sitagliptan and metformin. * Coronary artery disease-continue aspirin, metoprolol 50. Patient got echocardiogram done which was normal. Patient's Effient was stopped. continue rest of his home medication. * Patient is on room air and is ambulatory stat is 92%. * Code-full code * Diet-diabetic diet Plan-patient will go home with tapering dose of prednisone. Problem List: 1. Acute respiratory failure with hypoxia Pain Ratin Pain Location: none Pain Goal: Remain pain free Pain Plan: tylenol Tomorrow's Labs & Rationales: none
[2017-11-20 08:31] LABS: ABSOLUTE BASOPHIL COUNT 0 /CUMM (0.0-0.2); ABSOLUTE EOSINOPHIL COUNT 0.1 /CUMM (0.0-0.7); ABSOLUTE GRANULOCYTE CT 10.5 /CUMM (1.4-6.5); ABSOLUTE LYMPH COUNT 1.3 /CUMM (1.2-3.4); ABSOLUTE MONOCYTE COUNT 0.6 /CUMM (0.10-0.60); BASOPHIL % 0.2 % (0.0-2.0); EOSINOPHIL % 0.5 % (0-5); GRANULOCYTE % 84.3 % (42.2-75.2); HEMATOCRIT 40.7 % (42-52); MEAN CORPUSCULAR HGB 27.8 PG (27.0-31.0); MEAN CORPUSCULAR HGB CONC 33.1 G/DL (33.0-37.0); MEAN PLATELET VOLUME 9.9 FL (7.4-10.4); PLATELET COUNT 179 /CUMM (130-400); RBC DISTRIBUTION WIDTH 14.9 % (11.5-14.5); RED BLOOD CELL CT 4.84 /CUMM (4.70-6.10); WHITE BLOOD CELL COUNT 12.5 /CUMM (4.8-10.8)
[2017-11-20] MEDS ORDERED: PREDNISONE10 M2 PO ×4 (08:55→14:15)
--- NOTE | 2017-11-20 13:15 | PN- Att Addend ---
Attending Addendum Attending Brief Note Patient seen and examined, overall feeling much better. Not requiring any oxygen. Blood pressure is better controlled. Creatinine back to normal. Patient has completed total of seven-day course of antibiotics. He is medically stable for discharge home today on his home medications. He will be discharged on prednisone taper. The rest of his home medications will be continued. Patient to follow-up with Dr. Gaviria as outpatient.
== END 2017-11-20 14:04 | DRG 193 ==
LOC: ERH 13:15 → 2NB 16:29 → ERHI 16:29 → ENRESERV 20:05 → ENTRNSPT 20:30 → EDTRNSPT 20:44 → EDTRNSPTSTS 20:44 → 2NB 20:48 → CMPTRNSPT 21:05 → 2NB 11-15 08:33 → ENPENDDIS 11-20 11:17 → ENTRNSPT 11-20 13:51 → EDTRNSPT 11-20 13:59 → EDTRNSPTSTS 11-20 13:59 → 2NB 11-20 14:04 → CMPTRNSPT 11-20 14:11
PROVIDERS: Student in an Organized Health Care Education/Training Program
DX: J13 Pneumonia due to Streptococcus pneumoniae (principal); J96.01 Acute respiratory failure with hypoxia; N17.9 Acute kidney failure, unspecified; E11.22 Type 2 diabetes mellitus with diabetic chronic kidney disease; E78.5 Hyperlipidemia, unspecified; I12.9 Hypertensive chronic kidney disease with stage 1 through stage 4 chronic kidney disease, or unspecified chronic kidney disease; I25.10 Atherosclerotic heart disease of native coronary artery without angina pectoris; Z98.61 Coronary angioplasty status; N18.2 Chronic kidney disease, stage 2 (mild); M19.90 Unspecified osteoarthritis, unspecified site; Z79.82 Long term (current) use of aspirin; Z79.51 Long term (current) use of inhaled steroids; Z79.01 Long term (current) use of anticoagulants
CPT/HCPCS: 2NBSP; 84133; 84300; 36415; 36592; 71046; 76775; 78582; 82436; 82570; 87040; 87070; 87449; 87450; 93005; 93010; 93306; 96365; 97116-GO; 97161-GP; A9540; A9558; J0456; J0696; J0713; J1644; J2920; J3370; J3490; J7040; J7042